=== PATIENT | male | born 1945 | race Caucasian/White ===

== ENCOUNTER 2022-02-12 10:10 | Inpatient (IN) | payer MEDICARE, BC ==
[2022-02-12] MEDS ORDERED: Diclofenac 1% 100 GM GEL TP PRN ×2 (13:45→14:00)
[2022-02-12] MEDS ORDERED: Naproxen 500 MG TAB PO PRN (13:48)
[2022-02-12] MEDS ORDERED: Albuterol Sulfate 2.5 mg/3 ml Neb NEB PRN (13:51)
[2022-02-12] MEDS: Clindamycin 150 MG CAP PO SCH ×2 (16:24→21:38)
[2022-02-12] MEDS ORDERED: Rosuvastatin 10 MG TAB PO SCH (21:00)
[2022-02-12] MEDS ORDERED: Meloxicam 7.5 MG TAB PO PRN (21:07)
[2022-02-12] MEDS: Temazepam 15 MG CAP PO SCH (21:37)
[2022-02-12] MEDS: Cyclobenzaprine 10 MG TAB PO PRN (21:38)
[2022-02-12] MEDS: Aspirin 325 MG TAB PO SCH (21:38)
[2022-02-12] MEDS: ADVAIR INH SCH (21:39)
[2022-02-12] MEDS: LOVAZA PO SCH (21:43)
[2022-02-13 05:45] LABS: #Basophils 0.1 thou/uL (0.0-0.2); #Eosinphils 0.2 thou/uL (0.0-0.7); #Lymphocytes 2.3 thou/uL (1.20-3.40); #Monocytes 0.7 thou/uL (0.11-0.59); #Neutrophils 5.3 thou/uL (1.40-6.50); %Basophils 1.3 % (0.0-1.0); %Lymphocytes 26.9 % (21.0-51.0); %Monocytes 8.1 % (0.0-10.0); %Neutrophils 61.7 % (42.0-75.0); Hemoglobin 11.9 g/dL (14.0-18.0); Hypochromia SLIGHT = 6-15 cells (100X) (0-5/hpf); MDiff Complete? YES; Mean Corpuscular Hemoglobin 29.6 pg (27.0-31.0); Mean Corpuscular Volume 98.4 fL (78.0-98.0); Mean Platelet Volume 7.5 fL (7.4-10.4); Platelet Count 188 thou/uL (130-400); Red Blood Cell (RBC) Count 4.02 mill/uL (4.70-6.10); White Blood Cell (WBC) Count 8.6 thou/uL (4.8-10.8)
[2022-02-13 05:48] LABS: ALT (SGPT) 67 U/L (8-55); AST (SGOT) 52 U/L (5-34); Albumin 3.1 g/dL (3.4-4.8); Alkaline Phosphatase 83 U/L (40-110); Anion Gap 16 mmol/L (10-20); BUN (Urea Nitrogen) 22 mg/dL (8.4-25.7); Bilirubin, Total 0.6 mg/dL (0.2-1.2); Calc. Creatinine Clearance 212 mL/min (70-130); Calcium 8.1 mg/dL (7.8-10.44); Carbon Dioxide 27 mmol/L (23-31); Chloride 104 mmol/L (98-107); Globulin 2.5 g/dL (2.4-3.5); Glucose 110 mg/dL (83-110); Potassium 3.9 mmol/L (3.5-5.1); Protein, Total 5.6 g/dL (5.8-8.1); Sodium 143 mmol/L (136-145)
[2022-02-13] MEDS: Aspirin 325 MG TAB PO SCH ×2 (09:44→20:51)
[2022-02-13] MEDS: Ezetimibe 10 MG TAB PO SCH (09:44)
[2022-02-13] MEDS: Clindamycin 150 MG CAP PO SCH ×3 (09:44→20:51)
[2022-02-13] MEDS: Loratadine 10 MG TAB PO SCH (09:45)
[2022-02-13] MEDS: Furosemide 20 MG TAB PO SCH (09:45)
[2022-02-13] MEDS: ADVAIR INH SCH ×2 (09:45→20:55)
[2022-02-13] MEDS: LOVAZA PO SCH ×2 (09:45→20:55)
[2022-02-13] MEDS: Rosuvastatin 10 MG TAB PO SCH (20:51)
[2022-02-13] MEDS: Temazepam 15 MG CAP PO SCH (20:51)
[2022-02-14] MEDS: Acetaminophen 500 MG TAB PO PRN (08:50)
[2022-02-14] MEDS: Ezetimibe 10 MG TAB PO SCH (08:50)
[2022-02-14] MEDS: Furosemide 20 MG TAB PO SCH (08:50)
[2022-02-14] MEDS: Loratadine 10 MG TAB PO SCH (08:50)
[2022-02-14] MEDS: Aspirin 325 MG TAB PO SCH ×2 (08:50→20:55)
[2022-02-14] MEDS: Clindamycin 150 MG CAP PO SCH (08:50)
[2022-02-14] MEDS: LOVAZA PO SCH ×2 (08:57→21:02)
[2022-02-14] MEDS: ADVAIR INH SCH ×2 (08:57→20:57)
[2022-02-14] MEDS: Rosuvastatin 10 MG TAB PO SCH (20:55)
[2022-02-14] MEDS: Temazepam 15 MG CAP PO SCH (22:11)
[2022-02-15] MEDS: Furosemide 20 MG TAB PO SCH (08:19)
[2022-02-15] MEDS: Loratadine 10 MG TAB PO SCH (08:19)
[2022-02-15] MEDS: Ezetimibe 10 MG TAB PO SCH (08:19)
[2022-02-15] MEDS: Aspirin 325 MG TAB PO SCH ×2 (08:19→20:58)
[2022-02-15] MEDS: ADVAIR INH SCH (08:21)
[2022-02-15] MEDS: LOVAZA PO SCH ×2 (08:22→21:04)
[2022-02-15] MEDS: Bisacodyl 10 MG SUPP PR PRN (14:55)
[2022-02-15] MEDS: Meloxicam 7.5 MG TAB PO PRN (17:50)
[2022-02-15] MEDS: Rosuvastatin 10 MG TAB PO SCH (20:58)
[2022-02-15] MEDS: Temazepam 15 MG CAP PO SCH (20:59)
[2022-02-15] MEDS: [UNRECOGNIZED DRUG - OTHER] INH SCH (21:03)
[2022-02-15] MEDS: WIXELA INHUB INH SCH (21:03)
[2022-02-16] MEDS: Lantiseptic Ointment 130 GM JAR TOP PRN (09:17)
[2022-02-16] MEDS: Furosemide 20 MG TAB PO SCH (09:18)
[2022-02-16] MEDS: Aspirin 325 MG TAB PO SCH ×2 (09:18→21:08)
[2022-02-16] MEDS: Ezetimibe 10 MG TAB PO SCH (09:18)
[2022-02-16] MEDS: Loratadine 10 MG TAB PO SCH (09:18)
[2022-02-16] MEDS: [UNRECOGNIZED DRUG - OTHER] INH SCH ×2 (09:19→21:12)
[2022-02-16] MEDS: WIXELA INHUB INH SCH ×2 (09:19→21:12)
[2022-02-16] MEDS: LOVAZA PO SCH ×2 (09:19→21:10)
[2022-02-16] MEDS: Acetaminophen 500 MG TAB PO PRN (09:20)
[2022-02-16] MEDS: Rosuvastatin 10 MG TAB PO SCH (21:08)
[2022-02-16] MEDS: Temazepam 15 MG CAP PO SCH (21:09)
[2022-02-16] MEDS: Meloxicam 7.5 MG TAB PO PRN (21:09)
[2022-02-17] MEDS: LOVAZA PO SCH ×2 (08:51→21:01)
[2022-02-17] MEDS: [UNRECOGNIZED DRUG - OTHER] INH SCH ×2 (08:52→21:03)
[2022-02-17] MEDS: Aspirin 325 MG TAB PO SCH ×2 (08:52→21:03)
[2022-02-17] MEDS: Loratadine 10 MG TAB PO SCH (08:52)
[2022-02-17] MEDS: Furosemide 20 MG TAB PO SCH (08:52)
[2022-02-17] MEDS: WIXELA INHUB INH SCH ×2 (08:52→21:03)
[2022-02-17] MEDS: Ezetimibe 10 MG TAB PO SCH (08:52)
[2022-02-17] MEDS: Acetaminophen 500 MG TAB PO PRN (08:56)
[2022-02-17 10:39] LABS: ALT (SGPT) 41 U/L (8-55); AST (SGOT) 22 U/L (5-34); Albumin 3.3 g/dL (3.4-4.8); Alkaline Phosphatase 98 U/L (40-110); Anion Gap 16 mmol/L (10-20); BUN (Urea Nitrogen) 14 mg/dL (8.4-25.7); Bilirubin, Total 0.6 mg/dL (0.2-1.2); Calc. Creatinine Clearance 202 mL/min (70-130); Calcium 8.7 mg/dL (7.8-10.44); Carbon Dioxide 25 mmol/L (23-31); Chloride 104 mmol/L (98-107); Globulin 2.7 g/dL (2.4-3.5); Glucose 114 mg/dL (83-110); Potassium 4.3 mmol/L (3.5-5.1); Sodium 141 mmol/L (136-145)
[2022-02-17] MEDS: Bisacodyl 10 MG SUPP PR PRN (14:10)
[2022-02-17 15:26] LABS: SARS-CoV-2 PCR by NAA Not Detected (NotDetected)
[2022-02-17] MEDS: Rosuvastatin 10 MG TAB PO SCH (21:02)
[2022-02-17] MEDS: Temazepam 15 MG CAP PO SCH (22:25)
[2022-02-18 05:44] LABS: #Basophils 0.1 thou/uL (0.0-0.2); #Eosinphils 0.3 thou/uL (0.0-0.7); #Lymphocytes 2.5 thou/uL (1.20-3.40); #Monocytes 0.9 thou/uL (0.11-0.59); %Basophils 0.8 % (0.0-1.0); %Eosinophils 3.8 % (0.0-10.0); %Lymphocytes 28.4 % (21.0-51.0); %Monocytes 10.2 % (0.0-10.0); %Neutrophils 56.8 % (42.0-75.0); Hemoglobin 14.6 g/dL (14.0-18.0); Mean Corpuscular Hemoglobin 33.3 pg (27.0-31.0); Mean Corpuscular Volume 95.1 fL (78.0-98.0); Mean Platelet Volume 6.8 fL (7.4-10.4); Platelet Count 260 thou/uL (130-400); RBC Distribution Width 13.4 % (11.5-14.5); Red Blood Cell (RBC) Count 4.38 mill/uL (4.70-6.10); White Blood Cell (WBC) Count 8.8 thou/uL (4.8-10.8)
[2022-02-18] MEDS: Meloxicam 7.5 MG TAB PO PRN (07:48)
[2022-02-18] MEDS: Acetaminophen 500 MG TAB PO PRN ×2 (07:49→20:28)
[2022-02-18] MEDS: Ezetimibe 10 MG TAB PO SCH (08:18)
[2022-02-18] MEDS: Aspirin 325 MG TAB PO SCH ×2 (08:18→20:27)
[2022-02-18] MEDS: Furosemide 20 MG TAB PO SCH (08:19)
[2022-02-18] MEDS: Loratadine 10 MG TAB PO SCH (08:19)
[2022-02-18] MEDS: LOVAZA PO SCH ×2 (08:19→20:26)
[2022-02-18] MEDS: WIXELA INHUB INH SCH ×2 (08:20→20:31)
[2022-02-18] MEDS: [UNRECOGNIZED DRUG - OTHER] INH SCH ×2 (08:20→20:31)
[2022-02-18] MEDS: Rosuvastatin 10 MG TAB PO SCH (20:30)
[2022-02-18] MEDS: Lantiseptic Ointment 130 GM JAR TOP PRN (20:33)
[2022-02-18] MEDS: Temazepam 15 MG CAP PO SCH (22:22)
[2022-02-19] MEDS: LOVAZA PO SCH ×2 (08:18→21:41)
[2022-02-19] MEDS: Ezetimibe 10 MG TAB PO SCH (08:20)
[2022-02-19] MEDS: Loratadine 10 MG TAB PO SCH (08:20)
[2022-02-19] MEDS: Aspirin 325 MG TAB PO SCH ×2 (08:20→21:37)
[2022-02-19] MEDS: Furosemide 20 MG TAB PO SCH (08:20)
[2022-02-19] MEDS: Lantiseptic Ointment 130 GM JAR TOP PRN (08:21)
[2022-02-19] MEDS: [UNRECOGNIZED DRUG - OTHER] INH SCH ×2 (08:22→21:42)
[2022-02-19] MEDS: WIXELA INHUB INH SCH ×2 (08:22→21:42)
[2022-02-19] MEDS: Rosuvastatin 10 MG TAB PO SCH (21:37)
[2022-02-19] MEDS: Acetaminophen 500 MG TAB PO PRN (21:41)
[2022-02-19] MEDS: Temazepam 15 MG CAP PO SCH (23:24)
[2022-02-19] MEDS ORDERED: Temazepam 15 MG CAP PO SCH (23:30)
[2022-02-20] MEDS: LOVAZA PO SCH ×2 (08:15→20:34)
[2022-02-20] MEDS: [UNRECOGNIZED DRUG - OTHER] INH SCH ×2 (08:17→20:35)
[2022-02-20] MEDS: WIXELA INHUB INH SCH ×2 (08:17→20:35)
[2022-02-20] MEDS: Loratadine 10 MG TAB PO SCH (08:18)
[2022-02-20] MEDS: Aspirin 325 MG TAB PO SCH ×2 (08:18→20:34)
[2022-02-20] MEDS: Furosemide 20 MG TAB PO SCH (08:18)
[2022-02-20] MEDS: Ezetimibe 10 MG TAB PO SCH (08:18)
[2022-02-20] MEDS: Lantiseptic Ointment 130 GM JAR TOP PRN (08:19)
[2022-02-20] MEDS: Meloxicam 7.5 MG TAB PO PRN (20:32)
[2022-02-20] MEDS: Rosuvastatin 10 MG TAB PO SCH (20:33)
[2022-02-20] MEDS: Acetaminophen 500 MG TAB PO PRN (20:33)
[2022-02-20] MEDS: Temazepam 15 MG CAP PO SCH (22:08)
[2022-02-21] MEDS: Ezetimibe 10 MG TAB PO SCH (08:29)
[2022-02-21] MEDS: Furosemide 20 MG TAB PO SCH (08:29)
[2022-02-21] MEDS: Loratadine 10 MG TAB PO SCH (08:29)
[2022-02-21] MEDS: Aspirin 325 MG TAB PO SCH ×2 (08:29→20:01)
[2022-02-21] MEDS: Lantiseptic Ointment 130 GM JAR TOP PRN (08:30)
[2022-02-21] MEDS: [UNRECOGNIZED DRUG - OTHER] INH SCH ×2 (08:31→20:01)
[2022-02-21] MEDS: LOVAZA PO SCH ×2 (08:31→20:00)
[2022-02-21] MEDS: WIXELA INHUB INH SCH ×2 (08:31→20:01)
[2022-02-21] MEDS: Bisacodyl 10 MG SUPP PR PRN (14:08)
[2022-02-21] MEDS: Rosuvastatin 10 MG TAB PO SCH (20:01)
[2022-02-21] MEDS ORDERED: Temazepam 15 MG CAP PO SCH (23:15)
[2022-02-21] MEDS: Meloxicam 7.5 MG TAB PO PRN (23:18)
[2022-02-21] MEDS: Acetaminophen 500 MG TAB PO PRN (23:18)
[2022-02-21] MEDS: Temazepam 15 MG CAP PO SCH (23:54)
[2022-02-22] MEDS: Furosemide 20 MG TAB PO SCH (09:01)
[2022-02-22] MEDS: Loratadine 10 MG TAB PO SCH (09:01)
[2022-02-22] MEDS: Ezetimibe 10 MG TAB PO SCH (09:01)
[2022-02-22] MEDS: Aspirin 325 MG TAB PO SCH ×2 (09:01→20:55)
[2022-02-22] MEDS: LOVAZA PO SCH ×3 (09:02→20:59)
[2022-02-22] MEDS: WIXELA INHUB INH SCH ×2 (09:10→20:58)
[2022-02-22] MEDS: [UNRECOGNIZED DRUG - OTHER] INH SCH ×2 (09:10→20:58)
[2022-02-22] MEDS: Rosuvastatin 10 MG TAB PO SCH (20:56)
[2022-02-22] MEDS: Temazepam 15 MG CAP PO SCH (21:01)
[2022-02-23] MEDS: Furosemide 20 MG TAB PO SCH (09:22)
[2022-02-23] MEDS: Ezetimibe 10 MG TAB PO SCH (09:22)
[2022-02-23] MEDS: Loratadine 10 MG TAB PO SCH (09:22)
[2022-02-23] MEDS: Aspirin 325 MG TAB PO SCH ×2 (09:22→21:30)
[2022-02-23] MEDS: [UNRECOGNIZED DRUG - OTHER] INH SCH ×2 (09:24→21:41)
[2022-02-23] MEDS: WIXELA INHUB INH SCH ×2 (09:24→21:41)
[2022-02-23] MEDS: LOVAZA PO SCH ×2 (09:24→21:31)
[2022-02-23] MEDS: Rosuvastatin 10 MG TAB PO SCH (21:36)
[2022-02-23] MEDS: Meloxicam 7.5 MG TAB PO PRN (21:37)
[2022-02-23] MEDS: Acetaminophen 500 MG TAB PO PRN (21:38)
[2022-02-23] MEDS: Temazepam 15 MG CAP PO SCH (22:26)
[2022-02-24] MEDS: Loratadine 10 MG TAB PO SCH (08:01)
[2022-02-24] MEDS: Aspirin 325 MG TAB PO SCH ×2 (08:01→20:23)
[2022-02-24] MEDS: Ezetimibe 10 MG TAB PO SCH (08:01)
[2022-02-24] MEDS: LOVAZA PO SCH ×2 (08:01→20:23)
[2022-02-24] MEDS: Furosemide 20 MG TAB PO SCH (08:01)
[2022-02-24] MEDS: WIXELA INHUB INH SCH ×2 (08:02→20:23)
[2022-02-24] MEDS: [UNRECOGNIZED DRUG - OTHER] INH SCH ×2 (08:02→20:23)
[2022-02-24] MEDS: Meloxicam 7.5 MG TAB PO PRN ×2 (08:41→20:28)
[2022-02-24 15:35] LABS: SARS-CoV-2 PCR by NAA Not Detected (NotDetected)
[2022-02-24] MEDS: Lantiseptic Ointment 130 GM JAR TOP PRN (20:23)
[2022-02-24] MEDS: Rosuvastatin 10 MG TAB PO SCH (20:24)
[2022-02-24] MEDS: Acetaminophen 500 MG TAB PO PRN (20:29)
[2022-02-24] MEDS: Temazepam 15 MG CAP PO SCH (22:20)
[2022-02-25] MEDS: Loratadine 10 MG TAB PO SCH (08:11)
[2022-02-25] MEDS: Aspirin 325 MG TAB PO SCH ×2 (08:12→20:39)
[2022-02-25] MEDS: Ezetimibe 10 MG TAB PO SCH (08:12)
[2022-02-25] MEDS: Furosemide 20 MG TAB PO SCH (08:12)
[2022-02-25] MEDS: LOVAZA PO SCH ×2 (08:14→20:46)
[2022-02-25] MEDS: WIXELA INHUB INH SCH ×2 (08:15→20:40)
[2022-02-25] MEDS: [UNRECOGNIZED DRUG - OTHER] INH SCH ×2 (08:15→20:40)
[2022-02-25] MEDS: Rosuvastatin 10 MG TAB PO SCH (20:38)
[2022-02-25] MEDS: Meloxicam 7.5 MG TAB PO PRN (20:44)
[2022-02-25] MEDS: Acetaminophen 500 MG TAB PO PRN (20:45)
[2022-02-25] MEDS: Temazepam 15 MG CAP PO SCH (22:59)
[2022-02-26] MEDS: Ezetimibe 10 MG TAB PO SCH (08:45)
[2022-02-26] MEDS: Furosemide 20 MG TAB PO SCH (08:45)
[2022-02-26] MEDS: Aspirin 325 MG TAB PO SCH ×2 (08:45→20:50)
[2022-02-26] MEDS: Loratadine 10 MG TAB PO SCH (08:45)
[2022-02-26] MEDS: [UNRECOGNIZED DRUG - OTHER] INH SCH ×2 (08:46→20:50)
[2022-02-26] MEDS: WIXELA INHUB INH SCH ×2 (08:46→20:50)
[2022-02-26] MEDS: LOVAZA PO SCH ×2 (08:46→20:47)
[2022-02-26] MEDS: Rosuvastatin 10 MG TAB PO SCH (20:48)
[2022-02-26] MEDS: Acetaminophen 500 MG TAB PO PRN (20:53)
[2022-02-26] MEDS: Meloxicam 7.5 MG TAB PO PRN (20:54)
[2022-02-26] MEDS: Temazepam 15 MG CAP PO SCH (22:50)
[2022-02-27] MEDS: Ezetimibe 10 MG TAB PO SCH (09:18)
[2022-02-27] MEDS: Furosemide 20 MG TAB PO SCH (09:18)
[2022-02-27] MEDS: Loratadine 10 MG TAB PO SCH (09:18)
[2022-02-27] MEDS: Aspirin 325 MG TAB PO SCH ×2 (09:18→20:48)
[2022-02-27] MEDS: WIXELA INHUB INH SCH ×2 (09:21→20:50)
[2022-02-27] MEDS: LOVAZA PO SCH ×2 (09:21→20:49)
[2022-02-27] MEDS: [UNRECOGNIZED DRUG - OTHER] INH SCH ×2 (09:21→20:50)
[2022-02-27] MEDS: Meloxicam 7.5 MG TAB PO PRN (19:23)
[2022-02-27] MEDS: Acetaminophen 500 MG TAB PO PRN (19:24)
[2022-02-27] MEDS: Rosuvastatin 10 MG TAB PO SCH (20:49)
[2022-02-27] MEDS: Temazepam 15 MG CAP PO SCH (21:57)
[2022-02-28] MEDS: Aspirin 325 MG TAB PO SCH ×2 (09:32→20:25)
[2022-02-28] MEDS: Loratadine 10 MG TAB PO SCH (09:32)
[2022-02-28] MEDS: Ezetimibe 10 MG TAB PO SCH (09:32)
[2022-02-28] MEDS: Furosemide 20 MG TAB PO SCH (09:32)
[2022-02-28] MEDS: WIXELA INHUB INH SCH ×2 (09:34→20:25)
[2022-02-28] MEDS: LOVAZA PO SCH ×2 (09:34→20:26)
[2022-02-28] MEDS: [UNRECOGNIZED DRUG - OTHER] INH SCH ×2 (09:34→20:25)
[2022-02-28] MEDS: Bisacodyl 10 MG SUPP PR PRN (14:04)
[2022-02-28] MEDS: Meloxicam 7.5 MG TAB PO PRN (19:43)
[2022-02-28] MEDS: Acetaminophen 500 MG TAB PO PRN (19:44)
[2022-02-28] MEDS: Rosuvastatin 10 MG TAB PO SCH (20:25)
[2022-02-28] MEDS: Temazepam 15 MG CAP PO SCH (21:40)
[2022-03-01] MEDS: Ezetimibe 10 MG TAB PO SCH (08:27)
[2022-03-01] MEDS: Aspirin 325 MG TAB PO SCH ×2 (08:27→21:41)
[2022-03-01] MEDS: LOVAZA PO SCH ×2 (08:28→21:45)
[2022-03-01] MEDS: Loratadine 10 MG TAB PO SCH (08:28)
[2022-03-01] MEDS: [UNRECOGNIZED DRUG - OTHER] INH SCH ×2 (08:30→21:46)
[2022-03-01] MEDS: WIXELA INHUB INH SCH ×2 (08:30→21:46)
[2022-03-01] MEDS ORDERED: Furosemide 20 MG TAB PO SCH ×2 (09:00→21:00)
[2022-03-01] MEDS: Furosemide 20 MG TAB PO SCH (13:48)
[2022-03-01] MEDS: Cephalexin 500 MG CAP PO SCH ×3 (13:48→21:41)
[2022-03-01] MEDS ORDERED: VENTOLIN 90 MCG INH PRN (16:28)
[2022-03-01] MEDS: Meloxicam 7.5 MG TAB PO PRN (21:39)
[2022-03-01] MEDS: Rosuvastatin 10 MG TAB PO SCH (21:41)
[2022-03-01] MEDS: Acetaminophen 500 MG TAB PO PRN (21:42)
[2022-03-01] MEDS: Temazepam 15 MG CAP PO SCH (21:42)
[2022-03-02 05:21] LABS: #Basophils 0.1 thou/uL (0.0-0.2); #Eosinphils 0.5 thou/uL (0.0-0.7); #Lymphocytes 2.7 thou/uL (1.20-3.40); #Monocytes 0.9 thou/uL (0.11-0.59); #Neutrophils 6.7 thou/uL (1.40-6.50); %Eosinophils 4.8 % (0.0-10.0); %Lymphocytes 24.3 % (21.0-51.0); %Monocytes 8.4 % (0.0-10.0); %Neutrophils 61.5 % (42.0-75.0); Hemoglobin 14.1 g/dL (14.0-18.0); Mean Corpuscular HGB CONC 30.7 g/dL (32.0-36.0); Mean Corpuscular Hemoglobin 29.2 pg (27.0-31.0); Mean Corpuscular Volume 95.2 fL (78.0-98.0); Mean Platelet Volume 7.2 fL (7.4-10.4); Platelet Count 255 thou/uL (130-400); RBC Distribution Width 13.7 % (11.5-14.5); Red Blood Cell (RBC) Count 4.85 mill/uL (4.70-6.10)
[2022-03-02 05:35] LABS: Anion Gap 15 mmol/L (10-20); BUN (Urea Nitrogen) 24 mg/dL (8.4-25.7); Calc. Creatinine Clearance 156 mL/min (70-130); Carbon Dioxide 29 mmol/L (23-31); Chloride 101 mmol/L (98-107); Glucose 107 mg/dL (83-110); Sodium 141 mmol/L (136-145)
[2022-03-02] MEDS: Loratadine 10 MG TAB PO SCH (09:54)
[2022-03-02] MEDS: Enoxaparin Sodium 40 MG/0.4 ML SYRINGE SC SCH (09:54)
[2022-03-02] MEDS: Aspirin 325 MG TAB PO SCH ×2 (09:54→20:18)
[2022-03-02] MEDS: Cephalexin 500 MG CAP PO SCH ×4 (09:54→20:19)
[2022-03-02] MEDS: WIXELA INHUB INH SCH ×2 (09:55→20:21)
[2022-03-02] MEDS: [UNRECOGNIZED DRUG - OTHER] INH SCH ×2 (09:55→20:21)
[2022-03-02] MEDS: LOVAZA PO SCH ×2 (09:55→20:20)
[2022-03-02] MEDS: Ezetimibe 10 MG TAB PO SCH (09:55)
[2022-03-02] MEDS: Furosemide 20 MG TAB PO SCH ×2 (09:55→18:06)
[2022-03-02] MEDS: Acetaminophen 500 MG TAB PO PRN (20:17)
[2022-03-02] MEDS: Rosuvastatin 10 MG TAB PO SCH (20:19)
[2022-03-02] MEDS: Meloxicam 7.5 MG TAB PO PRN (20:19)
[2022-03-02] MEDS: Temazepam 15 MG CAP PO SCH (21:52)
[2022-03-03] MEDS: Aspirin 325 MG TAB PO SCH ×2 (08:09→20:47)
[2022-03-03] MEDS: Furosemide 20 MG TAB PO SCH ×2 (08:09→15:09)
[2022-03-03] MEDS: Enoxaparin Sodium 40 MG/0.4 ML SYRINGE SC SCH (08:09)
[2022-03-03] MEDS: Cephalexin 500 MG CAP PO SCH ×4 (08:09→20:47)
[2022-03-03] MEDS: Loratadine 10 MG TAB PO SCH (08:09)
[2022-03-03] MEDS: Ezetimibe 10 MG TAB PO SCH (08:10)
[2022-03-03] MEDS: [UNRECOGNIZED DRUG - OTHER] INH SCH ×2 (08:10→20:45)
[2022-03-03] MEDS: WIXELA INHUB INH SCH ×2 (08:10→20:45)
[2022-03-03] MEDS: LOVAZA PO SCH ×2 (08:10→20:52)
[2022-03-03 13:40] LABS: Bilirubin Negative (Negative); Blood, Urine Trace (Negative); Clarity Clear (Clear); Glucose, Urine (Dipstick) Negative (Negative); Ketone, Urine Negative (Negative); Leukocyte Negative (Negative); Nitrite Negative (Negative); Protein, Urine (Dipstick) Negative (Neg-Trace); Urobilinogen 0.2 mg/dL (Less than 2); pH, Urine 6.5 (5.0-9.0)
[2022-03-03 14:05] LABS: Bacteria/HPF Rare-Few HPF (None Seen); RBC/HPF 0-3 HPF (0-3); Squamous Epithelial 0-3 HPF (0-3); Urine Culture Reflex No No; WBC/HPF None Seen HPF (0-3)
[2022-03-03 14:20] LABS: SARS-CoV-2 PCR by NAA Not Detected (NotDetected)
[2022-03-03] MEDS: Rosuvastatin 10 MG TAB PO SCH (20:47)
[2022-03-03] MEDS: Meloxicam 7.5 MG TAB PO PRN (20:48)
[2022-03-03] MEDS: Acetaminophen 500 MG TAB PO PRN (20:49)
[2022-03-03] MEDS: Temazepam 15 MG CAP PO SCH (21:56)
[2022-03-04] MEDS: Aspirin 325 MG TAB PO SCH ×2 (08:34→21:13)
[2022-03-04] MEDS: Cephalexin 500 MG CAP PO SCH ×4 (08:34→21:13)
[2022-03-04] MEDS: Enoxaparin Sodium 40 MG/0.4 ML SYRINGE SC SCH (08:34)
[2022-03-04] MEDS: Loratadine 10 MG TAB PO SCH (08:34)
[2022-03-04] MEDS: Ezetimibe 10 MG TAB PO SCH (08:34)
[2022-03-04] MEDS: LOVAZA PO SCH ×2 (08:34→21:14)
[2022-03-04] MEDS: Furosemide 20 MG TAB PO SCH ×2 (08:34→13:50)
[2022-03-04] MEDS: [UNRECOGNIZED DRUG - OTHER] INH SCH ×2 (08:35→21:15)
[2022-03-04] MEDS: WIXELA INHUB INH SCH ×2 (08:35→21:15)
[2022-03-04] MEDS ORDERED: Cephalexin 500 MG CAP ONE (17:45)
[2022-03-04] MEDS: Acetaminophen 500 MG TAB PO PRN (21:12)
[2022-03-04] MEDS: Meloxicam 7.5 MG TAB PO PRN (21:13)
[2022-03-04] MEDS: Rosuvastatin 10 MG TAB PO SCH (21:13)
[2022-03-04] MEDS: Temazepam 15 MG CAP PO SCH (22:01)
[2022-03-05] MEDS: Cyclobenzaprine 10 MG TAB PO PRN (02:08)
[2022-03-05] MEDS: Acetaminophen/Codeine 30-300mg Tablet PO PRN (10:28)
[2022-03-05] MEDS: Cephalexin 500 MG CAP PO SCH ×4 (10:28→20:35)
[2022-03-05] MEDS: Aspirin 325 MG TAB PO SCH ×2 (10:30→20:35)
[2022-03-05] MEDS: Furosemide 20 MG TAB PO SCH ×2 (10:30→14:03)
[2022-03-05] MEDS: Enoxaparin Sodium 40 MG/0.4 ML SYRINGE SC SCH (10:31)
[2022-03-05] MEDS: Ezetimibe 10 MG TAB PO SCH (10:31)
[2022-03-05] MEDS: Loratadine 10 MG TAB PO SCH (10:31)
[2022-03-05] MEDS: LOVAZA PO SCH ×2 (10:35→20:37)
[2022-03-05] MEDS: WIXELA INHUB INH SCH ×2 (10:35→20:37)
[2022-03-05] MEDS: [UNRECOGNIZED DRUG - OTHER] INH SCH ×2 (10:35→20:37)
[2022-03-05] MEDS ORDERED: Silver Sulfadiazine 50 GM JAR TP SCH (16:45)
[2022-03-05] MEDS: Rosuvastatin 10 MG TAB PO SCH (20:35)
[2022-03-05] MEDS: Meloxicam 7.5 MG TAB PO PRN (20:35)
[2022-03-05] MEDS: Acetaminophen 500 MG TAB PO PRN (20:36)
[2022-03-05] MEDS: Temazepam 15 MG CAP PO SCH (22:20)
[2022-03-06] MEDS: Cyclobenzaprine 10 MG TAB PO PRN (02:11)
[2022-03-06] MEDS: Aspirin 325 MG TAB PO SCH ×2 (08:38→20:50)
[2022-03-06] MEDS: Ezetimibe 10 MG TAB PO SCH (08:38)
[2022-03-06] MEDS: Cephalexin 500 MG CAP PO SCH ×4 (08:38→20:49)
[2022-03-06] MEDS: Enoxaparin Sodium 40 MG/0.4 ML SYRINGE SC SCH (08:38)
[2022-03-06] MEDS: Furosemide 20 MG TAB PO SCH ×2 (08:38→13:01)
[2022-03-06] MEDS: Loratadine 10 MG TAB PO SCH (08:38)
[2022-03-06] MEDS: Silver Sulfadiazine 50 GM JAR TP SCH (08:39)
[2022-03-06] MEDS: LOVAZA PO SCH ×2 (08:41→20:54)
[2022-03-06] MEDS: WIXELA INHUB INH SCH ×2 (08:41→20:54)
[2022-03-06] MEDS: [UNRECOGNIZED DRUG - OTHER] INH SCH ×2 (08:41→20:54)
[2022-03-06] MEDS: Rosuvastatin 10 MG TAB PO SCH (20:49)
[2022-03-06] MEDS ORDERED: Guaifenesin DM 100-10/5 ML UDCUP PO PRN (20:49)
[2022-03-06] MEDS: Acetaminophen 500 MG TAB PO PRN (20:50)
[2022-03-06] MEDS: Meloxicam 7.5 MG TAB PO PRN (20:50)
[2022-03-06] MEDS: Temazepam 15 MG CAP PO SCH (22:53)
[2022-03-07] MEDS: Cyclobenzaprine 10 MG TAB PO PRN (02:54)
[2022-03-07] MEDS: Cephalexin 500 MG CAP PO SCH ×4 (08:16→22:06)
[2022-03-07] MEDS: Aspirin 325 MG TAB PO SCH ×2 (08:16→22:06)
[2022-03-07] MEDS: Loratadine 10 MG TAB PO SCH (08:16)
[2022-03-07] MEDS: Enoxaparin Sodium 40 MG/0.4 ML SYRINGE SC SCH (08:16)
[2022-03-07] MEDS: Ezetimibe 10 MG TAB PO SCH (08:16)
[2022-03-07] MEDS: Furosemide 20 MG TAB PO SCH ×2 (08:16→13:29)
[2022-03-07] MEDS: LOVAZA PO SCH ×2 (08:17→22:06)
[2022-03-07] MEDS: Silver Sulfadiazine 50 GM JAR TP SCH (08:18)
[2022-03-07] MEDS: WIXELA INHUB INH SCH ×2 (08:18→22:06)
[2022-03-07] MEDS: [UNRECOGNIZED DRUG - OTHER] INH SCH ×2 (08:18→22:06)
[2022-03-07] MEDS: Bisacodyl 10 MG SUPP PR PRN (14:11)
[2022-03-07] MEDS: Rosuvastatin 10 MG TAB PO SCH (22:07)
[2022-03-07] MEDS: Temazepam 15 MG CAP PO SCH (22:07)
[2022-03-07] MEDS: Meloxicam 7.5 MG TAB PO PRN (22:08)
[2022-03-07] MEDS: Acetaminophen 500 MG TAB PO PRN (22:08)
[2022-03-08] MEDS: WIXELA INHUB INH SCH ×2 (10:40→20:36)
[2022-03-08] MEDS: [UNRECOGNIZED DRUG - OTHER] INH SCH ×2 (10:40→20:36)
[2022-03-08] MEDS: Furosemide 20 MG TAB PO SCH ×2 (10:41→13:59)
[2022-03-08] MEDS: LOVAZA PO SCH (10:41)
[2022-03-08] MEDS: Loratadine 10 MG TAB PO SCH (10:41)
[2022-03-08] MEDS: Aspirin 325 MG TAB PO SCH ×2 (10:41→20:33)
[2022-03-08] MEDS: Ezetimibe 10 MG TAB PO SCH (10:41)
[2022-03-08] MEDS: Emollient 15 oz bottle 450 ML, Triamcinolone Acetonide 200 MG TOP SCH (10:42)
[2022-03-08] MEDS: Enoxaparin Sodium 40 MG/0.4 ML SYRINGE SC SCH (10:42)
[2022-03-08] MEDS: Silver Sulfadiazine 50 GM JAR TP SCH (10:42)
[2022-03-08] MEDS: Cephalexin 500 MG CAP PO SCH ×4 (10:42→20:35)
[2022-03-08] MEDS: Bisacodyl 10 MG SUPP PR PRN (10:47)
[2022-03-08] MEDS: LOVAZA 1 GM PO SCH (20:32)
[2022-03-08] MEDS: Rosuvastatin 10 MG TAB PO SCH (20:33)
[2022-03-08] MEDS: Acetaminophen 500 MG TAB PO PRN (20:35)
[2022-03-08] MEDS: Temazepam 15 MG CAP PO SCH (22:29)
[2022-03-09] MEDS: Cyclobenzaprine 10 MG TAB PO PRN (03:46)
[2022-03-09 05:25] LABS: #Basophils 0.1 thou/uL (0.0-0.2); #Eosinphils 0.7 thou/uL (0.0-0.7); #Lymphocytes 2.7 thou/uL (1.20-3.40); #Neutrophils 5.6 thou/uL (1.40-6.50); %Eosinophils 7.1 % (0.0-10.0); %Lymphocytes 26.5 % (21.0-51.0); %Monocytes 9.7 % (0.0-10.0); %Neutrophils 55.8 % (42.0-75.0); Hemoglobin 13.7 g/dL (14.0-18.0); Mean Corpuscular HGB CONC 31.9 g/dL (32.0-36.0); Mean Corpuscular Hemoglobin 29.7 pg (27.0-31.0); Mean Corpuscular Volume 92.9 fL (78.0-98.0); Mean Platelet Volume 7.3 fL (7.4-10.4); Platelet Count 212 thou/uL (130-400); RBC Distribution Width 12.8 % (11.5-14.5); Red Blood Cell (RBC) Count 4.63 mill/uL (4.70-6.10)
[2022-03-09 05:38] LABS: Anion Gap 16 mmol/L (10-20); BUN (Urea Nitrogen) 22 mg/dL (8.4-25.7); Calc. Creatinine Clearance 170 mL/min (70-130); Calcium 8.7 mg/dL (7.8-10.44); Carbon Dioxide 28 mmol/L (23-31); Chloride 101 mmol/L (98-107); Glucose 108 mg/dL (83-110); Potassium 3.6 mmol/L (3.5-5.1); Sodium 141 mmol/L (136-145)
[2022-03-09] MEDS: Ezetimibe 10 MG TAB PO SCH (08:54)
[2022-03-09] MEDS: Loratadine 10 MG TAB PO SCH (08:54)
[2022-03-09] MEDS: Enoxaparin Sodium 40 MG/0.4 ML SYRINGE SC SCH (08:54)
[2022-03-09] MEDS: Aspirin 325 MG TAB PO SCH ×2 (08:54→21:42)
[2022-03-09] MEDS: Furosemide 20 MG TAB PO SCH ×2 (08:54→14:09)
[2022-03-09] MEDS: Cephalexin 500 MG CAP PO SCH ×4 (08:54→21:42)
[2022-03-09] MEDS: Silver Sulfadiazine 50 GM JAR TP SCH (08:57)
[2022-03-09] MEDS: LOVAZA 1 GM PO SCH ×2 (08:57→21:43)
[2022-03-09] MEDS: [UNRECOGNIZED DRUG - OTHER] INH SCH ×2 (08:57→21:43)
[2022-03-09] MEDS: WIXELA INHUB INH SCH ×2 (08:57→21:43)
[2022-03-09] MEDS: Emollient 15 oz bottle 450 ML, Triamcinolone Acetonide 200 MG TOP SCH (08:58)
[2022-03-09] MEDS: Acetaminophen/Codeine 30-300mg Tablet PO PRN (14:14)
[2022-03-09] MEDS: Bisacodyl 10 MG SUPP PR PRN (17:10)
[2022-03-09] MEDS: Meloxicam 7.5 MG TAB PO PRN (21:43)
[2022-03-09] MEDS: Rosuvastatin 10 MG TAB PO SCH (21:44)
[2022-03-09] MEDS: Acetaminophen 500 MG TAB PO PRN (21:44)
[2022-03-09] MEDS: Temazepam 15 MG CAP PO SCH (22:26)
[2022-03-10] MEDS: WIXELA INHUB INH SCH ×2 (08:45→21:36)
[2022-03-10] MEDS: [UNRECOGNIZED DRUG - OTHER] INH SCH ×2 (08:45→21:36)
[2022-03-10] MEDS: Ezetimibe 10 MG TAB PO SCH (08:46)
[2022-03-10] MEDS: Aspirin 325 MG TAB PO SCH ×2 (08:46→21:34)
[2022-03-10] MEDS: LOVAZA 1 GM PO SCH ×2 (08:46→21:36)
[2022-03-10] MEDS: Enoxaparin Sodium 40 MG/0.4 ML SYRINGE SC SCH (08:47)
[2022-03-10] MEDS: Cephalexin 500 MG CAP PO SCH ×2 (08:47→12:58)
[2022-03-10] MEDS: Furosemide 20 MG TAB PO SCH ×2 (08:47→12:59)
[2022-03-10] MEDS: Loratadine 10 MG TAB PO SCH (08:47)
[2022-03-10] MEDS: Silver Sulfadiazine 50 GM JAR TP SCH (08:50)
[2022-03-10] MEDS: Emollient 15 oz bottle 450 ML, Triamcinolone Acetonide 200 MG TOP SCH (08:51)
[2022-03-10 15:59] LABS: SARS-CoV-2 PCR by NAA Not Detected (NotDetected)
[2022-03-10] MEDS: Meloxicam 7.5 MG TAB PO PRN (21:34)
[2022-03-10] MEDS: Rosuvastatin 10 MG TAB PO SCH (21:34)
[2022-03-10] MEDS: Acetaminophen 500 MG TAB PO PRN (21:35)
[2022-03-10] MEDS: Temazepam 15 MG CAP PO SCH (22:28)
[2022-03-11] MEDS: Cyclobenzaprine 10 MG TAB PO PRN (01:38)
[2022-03-11] MEDS: Enoxaparin Sodium 40 MG/0.4 ML SYRINGE SC SCH (09:11)
[2022-03-11] MEDS: Loratadine 10 MG TAB PO SCH (09:11)
[2022-03-11] MEDS: [UNRECOGNIZED DRUG - OTHER] INH SCH ×2 (09:12→21:05)
[2022-03-11] MEDS: Furosemide 20 MG TAB PO SCH ×2 (09:12→13:19)
[2022-03-11] MEDS: Aspirin 325 MG TAB PO SCH ×2 (09:12→21:05)
[2022-03-11] MEDS: Ezetimibe 10 MG TAB PO SCH (09:12)
[2022-03-11] MEDS: WIXELA INHUB INH SCH ×2 (09:12→21:05)
[2022-03-11] MEDS: LOVAZA 1 GM PO SCH ×2 (09:12→21:02)
[2022-03-11] MEDS: Silver Sulfadiazine 50 GM JAR TP SCH (09:12)
[2022-03-11] MEDS: Emollient 15 oz bottle 450 ML, Triamcinolone Acetonide 200 MG TOP SCH (09:13)
[2022-03-11] MEDS: Rosuvastatin 10 MG TAB PO SCH (21:04)
[2022-03-11] MEDS: Temazepam 15 MG CAP PO SCH (22:01)
[2022-03-11] MEDS: Acetaminophen 500 MG TAB PO PRN (22:01)
[2022-03-12] MEDS: Enoxaparin Sodium 40 MG/0.4 ML SYRINGE SC SCH (08:29)
[2022-03-12] MEDS: Furosemide 20 MG TAB PO SCH ×2 (08:30→13:55)
[2022-03-12] MEDS: Ezetimibe 10 MG TAB PO SCH (08:30)
[2022-03-12] MEDS: Aspirin 325 MG TAB PO SCH ×2 (08:30→20:33)
[2022-03-12] MEDS: Loratadine 10 MG TAB PO SCH (08:30)
[2022-03-12] MEDS: WIXELA INHUB INH SCH ×2 (08:30→20:30)
[2022-03-12] MEDS: [UNRECOGNIZED DRUG - OTHER] INH SCH ×2 (08:30→20:30)
[2022-03-12] MEDS: LOVAZA 1 GM PO SCH ×2 (08:30→20:32)
[2022-03-12] MEDS: Silver Sulfadiazine 50 GM JAR TP SCH (08:31)
[2022-03-12] MEDS: Emollient 15 oz bottle 450 ML, Triamcinolone Acetonide 200 MG TOP SCH (08:31)
[2022-03-12] MEDS: Bisacodyl 10 MG SUPP PR PRN (15:31)
[2022-03-12] MEDS: Acetaminophen 500 MG TAB PO PRN (19:49)
[2022-03-12] MEDS: Meloxicam 7.5 MG TAB PO PRN (19:50)
[2022-03-12] MEDS: Rosuvastatin 10 MG TAB PO SCH (20:33)
[2022-03-12] MEDS: Temazepam 15 MG CAP PO SCH (23:24)
[2022-03-13] MEDS: Enoxaparin Sodium 40 MG/0.4 ML SYRINGE SC SCH (09:30)
[2022-03-13] MEDS: WIXELA INHUB INH SCH ×2 (09:30→22:06)
[2022-03-13] MEDS: Ezetimibe 10 MG TAB PO SCH (09:30)
[2022-03-13] MEDS: Aspirin 325 MG TAB PO SCH ×2 (09:30→21:59)
[2022-03-13] MEDS: LOVAZA 1 GM PO SCH ×2 (09:30→22:05)
[2022-03-13] MEDS: Furosemide 20 MG TAB PO SCH ×2 (09:30→13:51)
[2022-03-13] MEDS: Silver Sulfadiazine 50 GM JAR TP SCH (09:30)
[2022-03-13] MEDS: Loratadine 10 MG TAB PO SCH (09:30)
[2022-03-13] MEDS: [UNRECOGNIZED DRUG - OTHER] INH SCH ×2 (09:30→22:06)
[2022-03-13] MEDS: Emollient 15 oz bottle 450 ML, Triamcinolone Acetonide 200 MG TOP SCH (09:31)
[2022-03-13] MEDS: Acetaminophen 500 MG TAB PO PRN (21:59)
[2022-03-13] MEDS: Rosuvastatin 10 MG TAB PO SCH (22:00)
[2022-03-13] MEDS: Meloxicam 7.5 MG TAB PO PRN (22:00)
[2022-03-13] MEDS: Temazepam 15 MG CAP PO SCH (22:01)
[2022-03-14] MEDS: Cyclobenzaprine 10 MG TAB PO PRN (01:28)
[2022-03-14] MEDS: Enoxaparin Sodium 40 MG/0.4 ML SYRINGE SC SCH (09:10)
[2022-03-14] MEDS: Ezetimibe 10 MG TAB PO SCH (09:10)
[2022-03-14] MEDS: Loratadine 10 MG TAB PO SCH (09:10)
[2022-03-14] MEDS: Furosemide 20 MG TAB PO SCH ×2 (09:10→14:51)
[2022-03-14] MEDS: Aspirin 325 MG TAB PO SCH ×2 (09:10→20:42)
[2022-03-14] MEDS: [UNRECOGNIZED DRUG - OTHER] INH SCH ×2 (09:11→20:45)
[2022-03-14] MEDS: WIXELA INHUB INH SCH ×2 (09:11→20:45)
[2022-03-14] MEDS: LOVAZA 1 GM PO SCH ×2 (09:11→20:44)
[2022-03-14] MEDS: Silver Sulfadiazine 50 GM JAR TP SCH (09:12)
[2022-03-14] MEDS: Emollient 15 oz bottle 450 ML, Triamcinolone Acetonide 200 MG TOP SCH (09:12)
[2022-03-14] MEDS: Rosuvastatin 10 MG TAB PO SCH (20:42)
[2022-03-14] MEDS: Temazepam 15 MG CAP PO SCH (22:58)
[2022-03-14] MEDS: Meloxicam 7.5 MG TAB PO PRN (22:59)
[2022-03-14] MEDS: Acetaminophen 500 MG TAB PO PRN (22:59)
[2022-03-15] MEDS: Silver Sulfadiazine 50 GM JAR TP SCH (09:37)
[2022-03-15] MEDS: Ezetimibe 10 MG TAB PO SCH (09:41)
[2022-03-15] MEDS: Enoxaparin Sodium 40 MG/0.4 ML SYRINGE SC SCH (09:41)
[2022-03-15] MEDS: Aspirin 325 MG TAB PO SCH ×2 (09:41→20:47)
[2022-03-15] MEDS: Loratadine 10 MG TAB PO SCH (09:42)
[2022-03-15] MEDS: Furosemide 20 MG TAB PO SCH ×2 (09:42→13:49)
[2022-03-15] MEDS: [UNRECOGNIZED DRUG - OTHER] INH SCH ×2 (09:44→20:48)
[2022-03-15] MEDS: WIXELA INHUB INH SCH ×2 (09:44→20:48)
[2022-03-15] MEDS: LOVAZA 1 GM PO SCH ×2 (09:44→20:49)
[2022-03-15] MEDS: Emollient 15 oz bottle 450 ML, Triamcinolone Acetonide 200 MG TOP SCH (09:46)
[2022-03-15] MEDS: Rosuvastatin 10 MG TAB PO SCH (20:47)
[2022-03-15] MEDS: Temazepam 15 MG CAP PO SCH (22:27)
[2022-03-16] MEDS: Aspirin 325 MG TAB PO SCH ×2 (08:37→20:59)
[2022-03-16] MEDS: Enoxaparin Sodium 40 MG/0.4 ML SYRINGE SC SCH (08:37)
[2022-03-16] MEDS: Ezetimibe 10 MG TAB PO SCH (08:37)
[2022-03-16] MEDS: Loratadine 10 MG TAB PO SCH (08:38)
[2022-03-16] MEDS: Furosemide 20 MG TAB PO SCH ×2 (08:38→15:00)
[2022-03-16] MEDS: LOVAZA 1 GM PO SCH ×2 (08:42→21:04)
[2022-03-16] MEDS: [UNRECOGNIZED DRUG - OTHER] INH SCH ×2 (08:42→21:01)
[2022-03-16] MEDS: WIXELA INHUB INH SCH ×2 (08:42→21:01)
[2022-03-16] MEDS: Emollient 15 oz bottle 450 ML, Triamcinolone Acetonide 200 MG TOP SCH (08:43)
[2022-03-16] MEDS: Bisacodyl 10 MG SUPP PR PRN (15:01)
[2022-03-16] MEDS: Rosuvastatin 10 MG TAB PO SCH (20:59)
[2022-03-17] MEDS: Temazepam 15 MG CAP PO SCH ×2 (00:36→22:45)
[2022-03-17 05:31] LABS: Hemoglobin 15.1 g/dL (14.0-18.0); Platelet Count 265 thou/uL (130-400)
[2022-03-17 05:44] LABS: Calc. Creatinine Clearance 110 mL/min (70-130)
[2022-03-17] MEDS: Enoxaparin Sodium 40 MG/0.4 ML SYRINGE SC SCH (08:24)
[2022-03-17] MEDS: Aspirin 325 MG TAB PO SCH ×2 (08:24→20:37)
[2022-03-17] MEDS: Ezetimibe 10 MG TAB PO SCH (08:25)
[2022-03-17] MEDS: Furosemide 20 MG TAB PO SCH ×2 (08:25→14:36)
[2022-03-17] MEDS: Loratadine 10 MG TAB PO SCH (08:25)
[2022-03-17] MEDS: WIXELA INHUB INH SCH ×2 (08:26→20:40)
[2022-03-17] MEDS: [UNRECOGNIZED DRUG - OTHER] INH SCH ×2 (08:26→20:40)
[2022-03-17] MEDS: LOVAZA 1 GM PO SCH ×2 (08:26→20:39)
[2022-03-17] MEDS: Emollient 15 oz bottle 450 ML, Triamcinolone Acetonide 200 MG TOP SCH (08:34)
[2022-03-17] MEDS: Rosuvastatin 10 MG TAB PO SCH (20:37)
[2022-03-17] MEDS: Acetaminophen 500 MG TAB PO PRN (20:43)
[2022-03-18 06:37] VITALS: BMI 42.5
[2022-03-18] MEDS: LOVAZA 1 GM PO SCH ×2 (09:29→20:41)
[2022-03-18] MEDS: [UNRECOGNIZED DRUG - OTHER] INH SCH ×2 (09:30→20:42)
[2022-03-18] MEDS: WIXELA INHUB INH SCH ×2 (09:30→20:42)
[2022-03-18] MEDS: Aspirin 325 MG TAB PO SCH ×2 (09:30→20:44)
[2022-03-18] MEDS: Loratadine 10 MG TAB PO SCH (09:30)
[2022-03-18] MEDS: Furosemide 20 MG TAB PO SCH ×2 (09:30→15:16)
[2022-03-18] MEDS: Ezetimibe 10 MG TAB PO SCH (09:30)
[2022-03-18] MEDS: Enoxaparin Sodium 40 MG/0.4 ML SYRINGE SC SCH (09:31)
[2022-03-18 15:31] LABS: SARS-CoV-2 PCR by NAA Not Detected (NotDetected)
[2022-03-18] MEDS: Emollient 15 oz bottle 450 ML, Triamcinolone Acetonide 200 MG TOP SCH (15:36)
[2022-03-18] MEDS: Meloxicam 7.5 MG TAB PO PRN (19:23)
[2022-03-18] MEDS: Acetaminophen 500 MG TAB PO PRN (19:24)
[2022-03-18] MEDS: Rosuvastatin 10 MG TAB PO SCH (20:42)
[2022-03-18] MEDS: Temazepam 15 MG CAP PO SCH (22:33)
[2022-03-19 07:58] VITALS: BP 136/83; TEMP 97.4
[2022-03-19] MEDS: Loratadine 10 MG TAB PO SCH (08:46)
[2022-03-19] MEDS: Ezetimibe 10 MG TAB PO SCH (08:46)
[2022-03-19] MEDS: Enoxaparin Sodium 40 MG/0.4 ML SYRINGE SC SCH (08:46)
[2022-03-19] MEDS: Furosemide 20 MG TAB PO SCH (08:46)
[2022-03-19] MEDS: Aspirin 325 MG TAB PO SCH (08:46)
[2022-03-19] MEDS: LOVAZA 1 GM PO SCH (08:47)
[2022-03-19] MEDS: [UNRECOGNIZED DRUG - OTHER] INH SCH (08:49)
[2022-03-19] MEDS: WIXELA INHUB INH SCH (08:49)
[2022-03-19] MEDS: Emollient 15 oz bottle 450 ML, Triamcinolone Acetonide 200 MG TOP SCH (08:50)
== END 2022-03-19 14:29 | disposition home health service (06) | DRG 948 ==
LOC: UNDOADMIN 10:10 → MADMS 10:10
PROVIDERS: ADMIT Family Medicine; ATTEND Family Medicine
PROC: 5A09357 Assistance with Respiratory Ventilation, Less than 24 Consecutive Hours, Continuous Positive Airway Pressure (ICD-10-PCS; principal; 2022-02-18)
PROC: 5A09357 Assistance with Respiratory Ventilation, Less than 24 Consecutive Hours, Continuous Positive Airway Pressure (ICD-10-PCS; 2022-03-02)
PROC: 5A09357 Assistance with Respiratory Ventilation, Less than 24 Consecutive Hours, Continuous Positive Airway Pressure (ICD-10-PCS; 2022-03-03)
PROC: 5A09357 Assistance with Respiratory Ventilation, Less than 24 Consecutive Hours, Continuous Positive Airway Pressure (ICD-10-PCS; 2022-03-19)
DX: R53.81 Other malaise (principal); Z68.41 Body mass index [BMI] 40.0-44.9, adult; L03.115 Cellulitis of right lower limb; L03.116 Cellulitis of left lower limb; L97.929 Non-pressure chronic ulcer of unspecified part of left lower leg with unspecified severity; L97.919 Non-pressure chronic ulcer of unspecified part of right lower leg with unspecified severity; R53.1 Weakness; I89.0 Lymphedema, not elsewhere classified; J44.9 Chronic obstructive pulmonary disease, unspecified; E78.5 Hyperlipidemia, unspecified; E66.01 Morbid (severe) obesity due to excess calories; T50.995A Adverse effect of other drugs, medicaments and biological substances, initial encounter; S80.822A Blister (nonthermal), left lower leg, initial encounter; S80.821A Blister (nonthermal), right lower leg, initial encounter; I10 Essential (primary) hypertension; K76.0 Fatty (change of) liver, not elsewhere classified; R94.5 Abnormal results of liver function studies; K59.00 Constipation, unspecified; G47.33 Obstructive sleep apnea (adult) (pediatric); Z20.822 Contact with and (suspected) exposure to COVID-19; Z79.82 Long term (current) use of aspirin; Z96.612 Presence of left artificial shoulder joint; Z79.899 Other long term (current) drug therapy; Z98.890 Other specified postprocedural states; Z96.653 Presence of artificial knee joint, bilateral
CPT/HCPCS: 36415; 80048; 80053; 81001; 82565; 85014; 85018; 85025; 85049; J1650; J3301; J7620; U0003; U0005

== ENCOUNTER 2022-06-28 11:35 | Emergency (ER) | payer MEDICARE, BC ==
[2022-06-28 12:36] LABS: #Basophils 0.1 thou/uL (0.0-0.2); #Eosinphils 0.3 thou/uL (0.0-0.7); #Lymphocytes 3.1 thou/uL (1.20-3.40); #Monocytes 0.9 thou/uL (0.11-0.59); #Neutrophils 6.9 thou/uL (1.40-6.50); %Basophils 0.6 % (0.0-1.0); %Eosinophils 2.6 % (0.0-10.0); %Monocytes 7.7 % (0.0-10.0); %Neutrophils 61.1 % (42.0-75.0); Hemoglobin 14.8 g/dL (14.0-18.0); Mean Corpuscular HGB CONC 31.5 g/dL (32.0-36.0); Mean Corpuscular Hemoglobin 29.1 pg (27.0-31.0); Mean Corpuscular Volume 92.3 fL (78.0-98.0); Mean Platelet Volume 7.8 fL (7.4-10.4); Platelet Count 212 thou/uL (130-400); RBC Distribution Width 13.2 % (11.5-14.5); White Blood Cell (WBC) Count 11.2 thou/uL (4.8-10.8)
[2022-06-28 12:50] LABS: ALT (SGPT) 38 U/L (8-55); AST (SGOT) 26 U/L (5-34); Albumin 3.7 g/dL (3.4-4.8); Alkaline Phosphatase 106 U/L (40-110); Anion Gap 14 mmol/L (10-20); BUN (Urea Nitrogen) 23 mg/dL (8.4-25.7); Bilirubin, Total 0.4 mg/dL (0.2-1.2); Calc. Creatinine Clearance 0 mL/min (70-130); Calcium 9.9 mg/dL (7.8-10.44); Carbon Dioxide 29 mmol/L (23-31); Chloride 102 mmol/L (98-107); Estimated GFR 90; Globulin 3.1 g/dL (2.4-3.5); Glucose 85 mg/dL (83-110); Potassium 4.2 mmol/L (3.5-5.1); Protein, Total 6.8 g/dL (5.8-8.1); Sodium 141 mmol/L (136-145)
[2022-06-28 13:36] LABS: Bilirubin Negative (Negative); Blood, Urine Negative (Negative); Clarity Clear (Clear); Glucose, Urine (Dipstick) Negative (Negative); Ketone, Urine Negative (Negative); Leukocyte Negative (Negative); Nitrite Negative (Negative); Protein, Urine (Dipstick) Negative (Neg-Trace); Specific Gravity, Urine 1.015 (1.005-1.030); Urobilinogen 0.2 mg/dL (Less than 2)
[2022-06-28] MEDS ORDERED: Sodium Chloride 0.9% 50 ML ONE (18:18)
[2022-06-28] MEDS ORDERED: CEFAZOLIN 2 GM VIAL ONE (18:18)
== END 2022-06-28 20:28 | disposition short-term general hospital (02) ==
LOC: MADERS 11:35
DX: R53.1 Weakness (principal); I89.0 Lymphedema, not elsewhere classified; L03.116 Cellulitis of left lower limb; R29.6 Repeated falls; I10 Essential (primary) hypertension; E78.00 Pure hypercholesterolemia, unspecified; J44.9 Chronic obstructive pulmonary disease, unspecified; G47.30 Sleep apnea, unspecified; E66.9 Obesity, unspecified; Z68.45 Body mass index [BMI] 70 or greater, adult; Z79.82 Long term (current) use of aspirin; Z79.899 Other long term (current) drug therapy
CPT/HCPCS: 36415; 71045; 80053; 81003; 83605; 83880; 84443; 85025; 85379; 87040; 93005; 94760; 96365; J0690

== ENCOUNTER 2022-07-02 17:43 | Inpatient (IN) | payer MEDICARE, BC ==
[2022-07-02] MEDS ORDERED: Albuterol Sulfate 2.5 mg/3 ml Neb NEB PRN (20:44)
[2022-07-02] MEDS ORDERED: Acetaminophen 500 MG TAB PO PRN (20:46)
[2022-07-02] MEDS ORDERED: Temazepam 15 MG CAP PO SCH (21:00)
[2022-07-02] MEDS: Clotrimazole 1% Cream 15 GM TUBE TOP SCH (21:54)
[2022-07-02] MEDS: Tamsulosin HCl 0.4 MG CAP PO SCH (21:55)
[2022-07-02] MEDS: Senokot S 8.6-50 MG TAB PO SCH (21:55)
[2022-07-02] MEDS: Rosuvastatin 10 MG TAB PO SCH (21:55)
[2022-07-02] MEDS: LOVAZA 1 GM PO SCH (21:56)
[2022-07-02] MEDS: FLUTICASONE INH SCH (21:56)
[2022-07-02] MEDS: SALMETEROL INH SCH (21:56)
[2022-07-02] MEDS: Aspirin 325 MG TAB PO SCH (21:56)
[2022-07-02] MEDS: Emollient 15 oz bottle 450 ML, Triamcinolone Acetonide 200 MG TOP SCH (21:57)
[2022-07-02] MEDS: Temazepam 15 MG CAP PO SCH (23:37)
[2022-07-03 05:56] LABS: ALT (SGPT) 25 U/L (8-55); AST (SGOT) 24 U/L (5-34); Albumin 2.9 g/dL (3.4-4.8); Alkaline Phosphatase 91 U/L (40-110); Anion Gap 11 mmol/L (10-20); BUN (Urea Nitrogen) 17 mg/dL (8.4-25.7); Bilirubin, Total 0.3 mg/dL (0.2-1.2); Calc. Creatinine Clearance 208 mL/min (70-130); Calcium 8.4 mg/dL (7.8-10.44); Carbon Dioxide 28 mmol/L (23-31); Chloride 106 mmol/L (98-107); Estimated GFR 97; Globulin 2.5 g/dL (2.4-3.5); Glucose 100 mg/dL (83-110); Potassium 4.2 mmol/L (3.5-5.1); Protein, Total 5.4 g/dL (5.8-8.1); Sodium 141 mmol/L (136-145)
[2022-07-03 06:02] LABS: Eosinophils 3 % (0-10); Hemoglobin 12.6 g/dL (14.0-18.0); Lymphocytes 39 % (21-51); MDiff Complete? YES; Mean Corpuscular HGB CONC 31.9 g/dL (32.0-36.0); Mean Corpuscular Hemoglobin 29.6 pg (27.0-31.0); Mean Platelet Volume 7.2 fL (7.4-10.4); Monocytes 5 % (0-10); Neutrophil 52 % (42-75); Platelet Count 177 thou/uL (130-400); RBC Distribution Width 13.2 % (11.5-14.5); RBC Morphology Normal; Red Blood Cell (RBC) Count 4.25 mill/uL (4.70-6.10); White Blood Cell (WBC) Count 8.2 thou/uL (4.8-10.8)
[2022-07-03] MEDS ORDERED: Furosemide 20 MG TAB PO SCH (09:00)
[2022-07-03] MEDS: Ezetimibe 10 MG TAB PO SCH (09:18)
[2022-07-03] MEDS: Loratadine 10 MG TAB PO SCH (09:18)
[2022-07-03] MEDS: Senokot S 8.6-50 MG TAB PO SCH ×2 (09:18→22:35)
[2022-07-03] MEDS: Aspirin 325 MG TAB PO SCH ×2 (09:19→22:36)
[2022-07-03] MEDS: Clotrimazole 1% Cream 15 GM TUBE TOP SCH ×2 (09:19→22:29)
[2022-07-03] MEDS: LOVAZA 1 GM PO SCH ×2 (09:21→22:36)
[2022-07-03] MEDS: SALMETEROL INH SCH ×2 (09:21→22:22)
[2022-07-03] MEDS: FLUTICASONE INH SCH ×2 (09:21→22:22)
[2022-07-03] MEDS: Emollient 15 oz bottle 450 ML, Triamcinolone Acetonide 200 MG TOP SCH ×2 (09:22→22:37)
[2022-07-03] MEDS: cefTRIAXone\\ROCEPHIN 2 GM in Sodium Chloride 0.9% 100 ML IVPB SCH (12:00)
[2022-07-03] MEDS: Furosemide 40 MG TAB PO SCH (14:36)
[2022-07-03] MEDS: Tamsulosin HCl 0.4 MG CAP PO SCH (22:20)
[2022-07-03] MEDS: Temazepam 15 MG CAP PO SCH (22:20)
[2022-07-03] MEDS ORDERED: Ondansetron ODT 4 MG TAB SL PRN (22:34)
[2022-07-03] MEDS: Rosuvastatin 10 MG TAB PO SCH (22:35)
[2022-07-04] MEDS: Clotrimazole 1% Cream 15 GM TUBE TOP SCH ×2 (08:53→20:59)
[2022-07-04] MEDS: Ezetimibe 10 MG TAB PO SCH (08:54)
[2022-07-04] MEDS: Aspirin 325 MG TAB PO SCH ×2 (08:54→20:59)
[2022-07-04] MEDS: Enoxaparin Sodium 40 MG/0.4 ML SYRINGE SC SCH (08:54)
[2022-07-04] MEDS: SALMETEROL INH SCH ×2 (08:55→21:03)
[2022-07-04] MEDS: Loratadine 10 MG TAB PO SCH (08:55)
[2022-07-04] MEDS: LOVAZA 1 GM PO SCH ×2 (08:55→21:06)
[2022-07-04] MEDS: FLUTICASONE INH SCH ×2 (08:55→21:03)
[2022-07-04] MEDS: Furosemide 40 MG TAB PO SCH ×2 (08:55→15:44)
[2022-07-04] MEDS: Emollient 15 oz bottle 450 ML, Triamcinolone Acetonide 200 MG TOP SCH ×2 (08:56→21:07)
[2022-07-04] MEDS: Senokot S 8.6-50 MG TAB PO SCH ×2 (08:58→21:06)
[2022-07-04] MEDS: cefTRIAXone\\ROCEPHIN 2 GM in Sodium Chloride 0.9% 100 ML IVPB SCH (12:10)
[2022-07-04] MEDS ORDERED: Lantiseptic Ointment 130 GM JAR TOP PRN (14:14)
[2022-07-04] MEDS: Tamsulosin HCl 0.4 MG CAP PO SCH (20:59)
[2022-07-04] MEDS: Rosuvastatin 10 MG TAB PO SCH (20:59)
[2022-07-04] MEDS: Lantiseptic Ointment 130 GM JAR TOP SCH (21:00)
[2022-07-04] MEDS: Temazepam 15 MG CAP PO SCH (22:24)
[2022-07-05] MEDS: Clotrimazole 1% Cream 15 GM TUBE TOP SCH ×2 (08:29→20:11)
[2022-07-05] MEDS: Lantiseptic Ointment 130 GM JAR TOP SCH ×2 (08:29→20:11)
[2022-07-05] MEDS: Loratadine 10 MG TAB PO SCH (08:30)
[2022-07-05] MEDS: Ezetimibe 10 MG TAB PO SCH (08:30)
[2022-07-05] MEDS: Furosemide 40 MG TAB PO SCH ×2 (08:30→13:19)
[2022-07-05] MEDS: Aspirin 325 MG TAB PO SCH ×2 (08:30→20:09)
[2022-07-05] MEDS: Enoxaparin Sodium 40 MG/0.4 ML SYRINGE SC SCH (08:31)
[2022-07-05] MEDS: FLUTICASONE INH SCH ×2 (08:32→20:10)
[2022-07-05] MEDS: SALMETEROL INH SCH ×2 (08:32→20:10)
[2022-07-05] MEDS: LOVAZA 1 GM PO SCH ×2 (08:34→20:10)
[2022-07-05] MEDS: Emollient 15 oz bottle 450 ML, Triamcinolone Acetonide 200 MG TOP SCH ×2 (08:35→20:11)
[2022-07-05] MEDS: Senokot S 8.6-50 MG TAB PO SCH ×2 (08:35→20:11)
[2022-07-05] MEDS: cefTRIAXone\\ROCEPHIN 2 GM in Sodium Chloride 0.9% 100 ML IVPB SCH (11:53)
[2022-07-05] MEDS: Cephalexin 500 MG CAP PO SCH ×2 (17:08→20:09)
[2022-07-05] MEDS: Rosuvastatin 10 MG TAB PO SCH (20:09)
[2022-07-05] MEDS: Tamsulosin HCl 0.4 MG CAP PO SCH (20:09)
[2022-07-05] MEDS: Temazepam 15 MG CAP PO SCH (22:39)
[2022-07-06] MEDS: Aspirin 325 MG TAB PO SCH ×2 (08:04→20:47)
[2022-07-06] MEDS: Enoxaparin Sodium 40 MG/0.4 ML SYRINGE SC SCH (08:04)
[2022-07-06] MEDS: Cephalexin 500 MG CAP PO SCH ×4 (08:04→20:47)
[2022-07-06] MEDS: Clotrimazole 1% Cream 15 GM TUBE TOP SCH ×2 (08:04→20:48)
[2022-07-06] MEDS: Ezetimibe 10 MG TAB PO SCH (08:05)
[2022-07-06] MEDS: Furosemide 40 MG TAB PO SCH ×2 (08:05→13:22)
[2022-07-06] MEDS: Lantiseptic Ointment 130 GM JAR TOP SCH ×2 (08:05→20:49)
[2022-07-06] MEDS: SALMETEROL INH SCH ×2 (08:06→20:50)
[2022-07-06] MEDS: FLUTICASONE INH SCH ×2 (08:06→20:50)
[2022-07-06] MEDS: Loratadine 10 MG TAB PO SCH (08:06)
[2022-07-06] MEDS: Emollient 15 oz bottle 450 ML, Triamcinolone Acetonide 200 MG TOP SCH ×2 (08:07→20:48)
[2022-07-06] MEDS: Senokot S 8.6-50 MG TAB PO SCH ×2 (08:07→20:47)
[2022-07-06] MEDS: LOVAZA 1 GM PO SCH ×2 (08:07→20:51)
[2022-07-06] MEDS: Rosuvastatin 10 MG TAB PO SCH (20:47)
[2022-07-06] MEDS: Tamsulosin HCl 0.4 MG CAP PO SCH (20:47)
[2022-07-06] MEDS: Temazepam 15 MG CAP PO SCH (21:05)
[2022-07-07] MEDS: Enoxaparin Sodium 40 MG/0.4 ML SYRINGE SC SCH (08:19)
[2022-07-07] MEDS: Furosemide 40 MG TAB PO SCH ×2 (08:19→13:50)
[2022-07-07] MEDS: Senokot S 8.6-50 MG TAB PO SCH ×2 (08:19→21:27)
[2022-07-07] MEDS: Loratadine 10 MG TAB PO SCH (08:19)
[2022-07-07] MEDS: Aspirin 325 MG TAB PO SCH ×2 (08:19→21:27)
[2022-07-07] MEDS: Cephalexin 500 MG CAP PO SCH ×4 (08:19→21:27)
[2022-07-07] MEDS: Ezetimibe 10 MG TAB PO SCH (08:19)
[2022-07-07] MEDS: Emollient 15 oz bottle 450 ML, Triamcinolone Acetonide 200 MG TOP SCH ×2 (08:21→21:29)
[2022-07-07] MEDS: SALMETEROL INH SCH ×2 (08:22→21:28)
[2022-07-07] MEDS: FLUTICASONE INH SCH ×2 (08:22→21:28)
[2022-07-07] MEDS: Clotrimazole 1% Cream 15 GM TUBE TOP SCH ×2 (08:22→21:27)
[2022-07-07] MEDS: Lantiseptic Ointment 130 GM JAR TOP SCH ×2 (08:22→21:28)
[2022-07-07] MEDS: LOVAZA 1 GM PO SCH ×2 (08:23→21:29)
[2022-07-07] MEDS: Rosuvastatin 10 MG TAB PO SCH (21:27)
[2022-07-07] MEDS: Tamsulosin HCl 0.4 MG CAP PO SCH (21:27)
[2022-07-07] MEDS: Temazepam 15 MG CAP PO SCH (22:37)
[2022-07-08] MEDS: Furosemide 40 MG TAB PO SCH ×2 (08:38→14:50)
[2022-07-08] MEDS: Lantiseptic Ointment 130 GM JAR TOP SCH ×2 (08:38→21:57)
[2022-07-08] MEDS: Cephalexin 500 MG CAP PO SCH ×4 (08:38→21:57)
[2022-07-08] MEDS: Ezetimibe 10 MG TAB PO SCH (08:38)
[2022-07-08] MEDS: Aspirin 325 MG TAB PO SCH ×2 (08:38→21:56)
[2022-07-08] MEDS: Loratadine 10 MG TAB PO SCH (08:38)
[2022-07-08] MEDS: Senokot S 8.6-50 MG TAB PO SCH ×2 (08:38→21:57)
[2022-07-08] MEDS: Clotrimazole 1% Cream 15 GM TUBE TOP SCH ×2 (08:39→21:57)
[2022-07-08] MEDS: Emollient 15 oz bottle 450 ML, Triamcinolone Acetonide 200 MG TOP SCH ×2 (08:39→22:06)
[2022-07-08] MEDS: FLUTICASONE INH SCH ×2 (08:41→21:57)
[2022-07-08] MEDS: LOVAZA 1 GM PO SCH ×2 (08:41→21:57)
[2022-07-08] MEDS: SALMETEROL INH SCH ×2 (08:41→21:57)
[2022-07-08] MEDS: Enoxaparin Sodium 40 MG/0.4 ML SYRINGE SC SCH (08:41)
[2022-07-08] MEDS: Tamsulosin HCl 0.4 MG CAP PO SCH (21:56)
[2022-07-08] MEDS: Rosuvastatin 10 MG TAB PO SCH (21:56)
[2022-07-08] MEDS: Temazepam 15 MG CAP PO SCH (22:07)
[2022-07-09] MEDS: Aspirin 325 MG TAB PO SCH ×2 (09:10→21:23)
[2022-07-09] MEDS: Enoxaparin Sodium 40 MG/0.4 ML SYRINGE SC SCH (09:10)
[2022-07-09] MEDS: Cephalexin 500 MG CAP PO SCH ×4 (09:10→21:23)
[2022-07-09] MEDS: Lantiseptic Ointment 130 GM JAR TOP SCH ×2 (09:11→21:24)
[2022-07-09] MEDS: Ezetimibe 10 MG TAB PO SCH (09:11)
[2022-07-09] MEDS: Clotrimazole 1% Cream 15 GM TUBE TOP SCH ×2 (09:11→21:23)
[2022-07-09] MEDS: Senokot S 8.6-50 MG TAB PO SCH ×2 (09:11→21:23)
[2022-07-09] MEDS: Loratadine 10 MG TAB PO SCH (09:11)
[2022-07-09] MEDS: Furosemide 40 MG TAB PO SCH ×2 (09:11→13:25)
[2022-07-09] MEDS: LOVAZA 1 GM PO SCH ×2 (09:13→21:24)
[2022-07-09] MEDS: SALMETEROL INH SCH ×2 (09:13→21:24)
[2022-07-09] MEDS: Emollient 15 oz bottle 450 ML, Triamcinolone Acetonide 200 MG TOP SCH ×2 (09:13→22:06)
[2022-07-09] MEDS: FLUTICASONE INH SCH ×2 (09:13→21:24)
[2022-07-09] MEDS: Tamsulosin HCl 0.4 MG CAP PO SCH (21:23)
[2022-07-09] MEDS: Rosuvastatin 10 MG TAB PO SCH (21:23)
[2022-07-09] MEDS: Temazepam 15 MG CAP PO SCH (22:02)
[2022-07-10] MEDS: Cephalexin 500 MG CAP PO SCH ×4 (09:01→22:03)
[2022-07-10] MEDS: Aspirin 325 MG TAB PO SCH ×2 (09:01→22:03)
[2022-07-10] MEDS: Senokot S 8.6-50 MG TAB PO SCH ×2 (09:01→22:16)
[2022-07-10] MEDS: Ezetimibe 10 MG TAB PO SCH (09:01)
[2022-07-10] MEDS: Loratadine 10 MG TAB PO SCH (09:01)
[2022-07-10] MEDS: Furosemide 40 MG TAB PO SCH ×2 (09:02→13:55)
[2022-07-10] MEDS: Clotrimazole 1% Cream 15 GM TUBE TOP SCH ×2 (09:02→22:05)
[2022-07-10] MEDS: Lantiseptic Ointment 130 GM JAR TOP SCH ×2 (09:02→22:05)
[2022-07-10] MEDS: Enoxaparin Sodium 40 MG/0.4 ML SYRINGE SC SCH (09:02)
[2022-07-10] MEDS: LOVAZA 1 GM PO SCH ×2 (09:03→22:05)
[2022-07-10] MEDS: Emollient 15 oz bottle 450 ML, Triamcinolone Acetonide 200 MG TOP SCH ×2 (09:03→22:16)
[2022-07-10] MEDS: FLUTICASONE INH SCH ×2 (09:04→22:04)
[2022-07-10] MEDS: SALMETEROL INH SCH ×2 (09:04→22:04)
[2022-07-10] MEDS: Rosuvastatin 10 MG TAB PO SCH (21:59)
[2022-07-10] MEDS: Temazepam 15 MG CAP PO SCH (22:02)
[2022-07-10] MEDS: Tamsulosin HCl 0.4 MG CAP PO SCH (22:15)
[2022-07-11] MEDS: Cephalexin 500 MG CAP PO SCH ×4 (08:10→21:47)
[2022-07-11] MEDS: Aspirin 325 MG TAB PO SCH ×2 (08:10→21:47)
[2022-07-11] MEDS: Senokot S 8.6-50 MG TAB PO SCH ×2 (08:10→21:05)
[2022-07-11] MEDS: Ezetimibe 10 MG TAB PO SCH (08:10)
[2022-07-11] MEDS: Furosemide 40 MG TAB PO SCH ×2 (08:10→14:09)
[2022-07-11] MEDS: Lantiseptic Ointment 130 GM JAR TOP SCH ×2 (08:11→21:48)
[2022-07-11] MEDS: Loratadine 10 MG TAB PO SCH (08:11)
[2022-07-11] MEDS: Clotrimazole 1% Cream 15 GM TUBE TOP SCH ×2 (08:11→21:48)
[2022-07-11] MEDS: Enoxaparin Sodium 40 MG/0.4 ML SYRINGE SC SCH (08:11)
[2022-07-11] MEDS: FLUTICASONE INH SCH ×2 (08:12→21:48)
[2022-07-11] MEDS: Emollient 15 oz bottle 450 ML, Triamcinolone Acetonide 200 MG TOP SCH ×2 (08:12→21:49)
[2022-07-11] MEDS: LOVAZA 1 GM PO SCH ×2 (08:12→21:49)
[2022-07-11] MEDS: SALMETEROL INH SCH ×2 (08:12→21:48)
[2022-07-11] MEDS: Rosuvastatin 10 MG TAB PO SCH (21:47)
[2022-07-11] MEDS: Tamsulosin HCl 0.4 MG CAP PO SCH (21:47)
[2022-07-11] MEDS: Temazepam 15 MG CAP PO SCH (21:47)
[2022-07-12 05:27] LABS: #Basophils 0.1 thou/uL (0.0-0.2); #Eosinphils 0.4 thou/uL (0.0-0.7); #Lymphocytes 3.6 thou/uL (1.20-3.40); #Neutrophils 6.4 thou/uL (1.40-6.50); %Basophils 0.8 % (0.0-1.0); %Eosinophils 3.2 % (0.0-10.0); %Lymphocytes 31.5 % (21.0-51.0); %Monocytes 8.9 % (0.0-10.0); %Neutrophils 55.5 % (42.0-75.0); Hemoglobin 13.6 g/dL (14.0-18.0); Mean Corpuscular HGB CONC 31.3 g/dL (32.0-36.0); Mean Corpuscular Hemoglobin 28.9 pg (27.0-31.0); Mean Corpuscular Volume 92.5 fL (78.0-98.0); Platelet Count 252 thou/uL (130-400); RBC Distribution Width 13.1 % (11.5-14.5); White Blood Cell (WBC) Count 11.5 thou/uL (4.8-10.8)
[2022-07-12 05:42] LABS: Anion Gap 15 mmol/L (10-20); BUN (Urea Nitrogen) 18 mg/dL (8.4-25.7); Calc. Creatinine Clearance 162 mL/min (70-130); Calcium 9.2 mg/dL (7.8-10.44); Carbon Dioxide 28 mmol/L (23-31); Chloride 101 mmol/L (98-107); Estimated GFR 92; Glucose 102 mg/dL (83-110); Potassium 3.7 mmol/L (3.5-5.1); Sodium 140 mmol/L (136-145)
[2022-07-12] MEDS: Senokot S 8.6-50 MG TAB PO SCH ×2 (09:27→20:38)
[2022-07-12] MEDS: Loratadine 10 MG TAB PO SCH (09:27)
[2022-07-12] MEDS: Aspirin 325 MG TAB PO SCH ×2 (09:27→20:30)
[2022-07-12] MEDS: Furosemide 40 MG TAB PO SCH ×2 (09:27→14:25)
[2022-07-12] MEDS: Ezetimibe 10 MG TAB PO SCH (09:27)
[2022-07-12] MEDS: Cephalexin 500 MG CAP PO SCH ×4 (09:27→20:30)
[2022-07-12] MEDS: Enoxaparin Sodium 40 MG/0.4 ML SYRINGE SC SCH (09:29)
[2022-07-12] MEDS: FLUTICASONE INH SCH ×2 (09:29→20:33)
[2022-07-12] MEDS: LOVAZA 1 GM PO SCH ×2 (09:29→20:33)
[2022-07-12] MEDS: Lantiseptic Ointment 130 GM JAR TOP SCH ×2 (09:29→20:31)
[2022-07-12] MEDS: SALMETEROL INH SCH ×2 (09:29→20:33)
[2022-07-12] MEDS: Clotrimazole 1% Cream 15 GM TUBE TOP SCH ×2 (09:29→20:30)
[2022-07-12] MEDS: Emollient 15 oz bottle 450 ML, Triamcinolone Acetonide 200 MG TOP SCH ×2 (09:30→20:38)
[2022-07-12] MEDS: Rosuvastatin 10 MG TAB PO SCH (20:30)
[2022-07-12] MEDS: Tamsulosin HCl 0.4 MG CAP PO SCH (20:30)
[2022-07-12] MEDS: Temazepam 15 MG CAP PO SCH (22:25)
[2022-07-13] MEDS: Aspirin 325 MG TAB PO SCH ×2 (09:06→20:34)
[2022-07-13] MEDS: Ezetimibe 10 MG TAB PO SCH (09:06)
[2022-07-13] MEDS: Cephalexin 500 MG CAP PO SCH ×4 (09:06→20:34)
[2022-07-13] MEDS: Enoxaparin Sodium 40 MG/0.4 ML SYRINGE SC SCH (09:06)
[2022-07-13] MEDS: Furosemide 40 MG TAB PO SCH ×2 (09:07→13:52)
[2022-07-13] MEDS: Senokot S 8.6-50 MG TAB PO SCH ×2 (09:07→20:34)
[2022-07-13] MEDS: Clotrimazole 1% Cream 15 GM TUBE TOP SCH ×2 (09:07→20:37)
[2022-07-13] MEDS: Loratadine 10 MG TAB PO SCH (09:07)
[2022-07-13] MEDS: Emollient 15 oz bottle 450 ML, Triamcinolone Acetonide 200 MG TOP SCH ×2 (09:07→20:37)
[2022-07-13] MEDS: Lantiseptic Ointment 130 GM JAR TOP SCH ×2 (09:07→20:38)
[2022-07-13] MEDS: FLUTICASONE INH SCH ×2 (09:10→20:32)
[2022-07-13] MEDS: SALMETEROL INH SCH ×2 (09:10→20:32)
[2022-07-13] MEDS: LOVAZA 1 GM PO SCH ×2 (09:10→20:33)
[2022-07-13] MEDS: Tamsulosin HCl 0.4 MG CAP PO SCH (20:34)
[2022-07-13] MEDS: Rosuvastatin 10 MG TAB PO SCH (20:34)
[2022-07-13] MEDS: Temazepam 15 MG CAP PO SCH (22:40)
[2022-07-14] MEDS: Clotrimazole 1% Cream 15 GM TUBE TOP SCH ×2 (08:42→20:34)
[2022-07-14] MEDS: Lantiseptic Ointment 130 GM JAR TOP SCH ×2 (08:43→20:34)
[2022-07-14] MEDS: Senokot S 8.6-50 MG TAB PO SCH ×2 (08:43→20:33)
[2022-07-14] MEDS: Furosemide 40 MG TAB PO SCH ×2 (08:43→13:22)
[2022-07-14] MEDS: Aspirin 325 MG TAB PO SCH ×2 (08:43→20:33)
[2022-07-14] MEDS: Loratadine 10 MG TAB PO SCH (08:43)
[2022-07-14] MEDS: Cephalexin 500 MG CAP PO SCH ×4 (08:43→20:33)
[2022-07-14] MEDS: Ezetimibe 10 MG TAB PO SCH (08:43)
[2022-07-14] MEDS: Enoxaparin Sodium 40 MG/0.4 ML SYRINGE SC SCH (08:44)
[2022-07-14] MEDS: LOVAZA 1 GM PO SCH ×2 (08:44→20:39)
[2022-07-14] MEDS: Emollient 15 oz bottle 450 ML, Triamcinolone Acetonide 200 MG TOP SCH ×2 (08:44→20:35)
[2022-07-14] MEDS: FLUTICASONE INH SCH ×2 (08:45→20:39)
[2022-07-14] MEDS: SALMETEROL INH SCH ×2 (08:45→20:39)
[2022-07-14] MEDS: Rosuvastatin 10 MG TAB PO SCH (20:33)
[2022-07-14] MEDS: Tamsulosin HCl 0.4 MG CAP PO SCH (20:33)
[2022-07-14] MEDS: Temazepam 15 MG CAP PO SCH (22:18)
[2022-07-15] MEDS: Aspirin 325 MG TAB PO SCH ×2 (08:27→20:07)
[2022-07-15] MEDS: Furosemide 40 MG TAB PO SCH ×2 (08:27→12:52)
[2022-07-15] MEDS: Enoxaparin Sodium 40 MG/0.4 ML SYRINGE SC SCH (08:27)
[2022-07-15] MEDS: Cephalexin 500 MG CAP PO SCH ×3 (08:27→16:56)
[2022-07-15] MEDS: Ezetimibe 10 MG TAB PO SCH (08:27)
[2022-07-15] MEDS: Senokot S 8.6-50 MG TAB PO SCH ×2 (08:27→20:07)
[2022-07-15] MEDS: Loratadine 10 MG TAB PO SCH (08:27)
[2022-07-15] MEDS: Clotrimazole 1% Cream 15 GM TUBE TOP SCH ×2 (08:27→20:10)
[2022-07-15] MEDS: SALMETEROL INH SCH ×2 (08:28→20:06)
[2022-07-15] MEDS: LOVAZA 1 GM PO SCH ×2 (08:28→20:05)
[2022-07-15] MEDS: FLUTICASONE INH SCH ×2 (08:28→20:06)
[2022-07-15] MEDS: Emollient 15 oz bottle 450 ML, Triamcinolone Acetonide 200 MG TOP SCH ×2 (08:28→20:08)
[2022-07-15] MEDS: Lantiseptic Ointment 130 GM JAR TOP SCH ×2 (08:28→20:07)
[2022-07-15] MEDS: Rosuvastatin 10 MG TAB PO SCH (20:07)
[2022-07-15] MEDS: Tamsulosin HCl 0.4 MG CAP PO SCH (20:07)
[2022-07-15] MEDS: Temazepam 15 MG CAP PO SCH (22:15)
[2022-07-16] MEDS: Enoxaparin Sodium 40 MG/0.4 ML SYRINGE SC SCH (07:54)
[2022-07-16] MEDS: Furosemide 40 MG TAB PO SCH (07:54)
[2022-07-16] MEDS: Aspirin 325 MG TAB PO SCH (07:54)
[2022-07-16] MEDS: Ezetimibe 10 MG TAB PO SCH (07:54)
[2022-07-16] MEDS: Senokot S 8.6-50 MG TAB PO SCH (07:55)
[2022-07-16] MEDS: Clotrimazole 1% Cream 15 GM TUBE TOP SCH (07:55)
[2022-07-16] MEDS: Loratadine 10 MG TAB PO SCH (07:55)
[2022-07-16] MEDS: Lantiseptic Ointment 130 GM JAR TOP SCH (07:56)
[2022-07-16] MEDS: SALMETEROL INH SCH (07:56)
[2022-07-16] MEDS: FLUTICASONE INH SCH (07:56)
[2022-07-16] MEDS: LOVAZA 1 GM PO SCH (07:56)
[2022-07-16] MEDS: Emollient 15 oz bottle 450 ML, Triamcinolone Acetonide 200 MG TOP SCH (07:57)
[2022-07-16 10:12] VITALS: BMI 39.6
[2022-07-16 12:35] VITALS: BP 136/77; TEMP 97.7
== END 2022-07-16 13:35 | disposition home health service (06) | DRG 603 ==
LOC: MADMS 17:43
PROVIDERS: ADMIT Family Medicine; ATTEND Family Medicine
DX: L03.116 Cellulitis of left lower limb (principal); E66.01 Morbid (severe) obesity due to excess calories; J44.9 Chronic obstructive pulmonary disease, unspecified; G47.33 Obstructive sleep apnea (adult) (pediatric); I87.2 Venous insufficiency (chronic) (peripheral); Z96.612 Presence of left artificial shoulder joint; I10 Essential (primary) hypertension; E78.5 Hyperlipidemia, unspecified; I35.0 Nonrheumatic aortic (valve) stenosis; Z96.653 Presence of artificial knee joint, bilateral; K59.00 Constipation, unspecified; I89.0 Lymphedema, not elsewhere classified; R53.81 Other malaise; I95.1 Orthostatic hypotension; Z90.89 Acquired absence of other organs; Z98.890 Other specified postprocedural states; Z79.899 Other long term (current) drug therapy; Z68.39 Body mass index [BMI] 39.0-39.9, adult; Z79.82 Long term (current) use of aspirin; Z20.822 Contact with and (suspected) exposure to COVID-19
CPT/HCPCS: 36415; 80048; 80053; 85025; 87811; J0696; J1650; J3301; J3490; U0003; U0005

== ENCOUNTER 2022-08-22 14:09 | Emergency (ER) | payer MEDICARE, BC ==
[2022-08-22] MEDS ORDERED: traMADol HCl 50 MG TAB ONE (14:41)
[2022-08-22] MEDS ORDERED: Cephalexin 500 MG CAP ONE (14:41)
[2022-08-22] MEDS ORDERED: Boostrix 0.5 ML (Tdap) VIAL (>/=7 yrs of age) ONE (14:42)
[2022-08-22] MEDS ORDERED: Silver Sulfadiazine 50 GM TUBE ONE ×2 (14:42→14:59)
[2022-08-22] MEDS ORDERED: traMADol HCl 50 MG TAB PO SCH (14:45)
[2022-08-22] MEDS ORDERED: Cephalexin 500 MG CAP PO SCH (14:45)
[2022-08-22] MEDS ORDERED: Boostrix 0.5 ML (Tdap) VIAL (>/=7 yrs of age) IM ONE (14:45)
[2022-08-22] MEDS ORDERED: Silver Sulfadiazine 50 GM JAR TP SCH (14:45)
[2022-08-22] MEDS ORDERED: Silver Sulfadiazine 50 GM TUBE TOP SCH (15:00)
== END 2022-08-22 15:09 | disposition home or self-care (01) ==
LOC: MADERS 14:09
DX: T21.22XA Burn of second degree of abdominal wall, initial encounter (principal); T24.212A Burn of second degree of left thigh, initial encounter; Z23 Encounter for immunization; X10.0XXA Contact with hot drinks, initial encounter
CPT/HCPCS: 90471; 90715

== ENCOUNTER 2022-10-28 11:39 | Inpatient (IN) | payer MEDICARE, BC ==
[2022-10-28] MEDS ORDERED: Loratadine 10 MG TAB PO PRN (16:15)
[2022-10-28] MEDS ORDERED: traMADol HCl 50 MG TAB PO PRN (16:15)
[2022-10-28] MEDS ORDERED: Diclofenac 1% 100 GM GEL TP PRN (16:52)
[2022-10-28] MEDS ORDERED: Lantiseptic Ointment 130 GM JAR TOP PRN (17:12)
[2022-10-28] MEDS ORDERED: Mometasone/Formoterol 200/5 60 PUFF INH SCH (19:00)
[2022-10-28] MEDS ORDERED: WIXELA INH SCH (19:00)
[2022-10-28] MEDS ORDERED: Temazepam 15 MG CAP PO SCH (21:00)
[2022-10-28] MEDS: Ezetimibe 10 MG TAB PO SCH (22:03)
[2022-10-28] MEDS: Rosuvastatin 10 MG TAB PO SCH (22:03)
[2022-10-28] MEDS: Lantiseptic Ointment 130 GM JAR TOP SCH (22:03)
[2022-10-28] MEDS: Senokot S 8.6-50 MG TAB PO SCH (22:03)
[2022-10-28] MEDS: Ascorbic Acid 500 mg Chewable Tablet PO SCH (22:04)
[2022-10-28] MEDS: Tamsulosin HCl 0.4 MG CAP PO SCH (22:04)
[2022-10-28] MEDS: Zinc Sulfate 220 MG CAP PO SCH (22:04)
[2022-10-28] MEDS: Multivitamin W/ Minerals 1 TAB PO SCH (22:04)
[2022-10-28] MEDS: Calcium Carbonate 500 MG TAB PO SCH (22:04)
[2022-10-28] MEDS: Omega-3 Acid Ethyl Esters [Lovaza] 1 GM Capsule PO SCH (22:05)
[2022-10-28] MEDS: WIXELA INH SCH (22:05)
[2022-10-28] MEDS: Temazepam 15 MG CAP PO SCH (22:53)
[2022-10-29 05:28] LABS: #Basophils 0.1 thou/uL (0.0-0.2); #Eosinphils 0.4 thou/uL (0.0-0.7); #Lymphocytes 2.8 thou/uL (1.20-3.40); #Monocytes 0.9 thou/uL (0.11-0.59); #Neutrophils 6.3 thou/uL (1.40-6.50); %Basophils 1.1 % (0.0-1.0); %Eosinophils 3.7 % (0.0-10.0); %Lymphocytes 26.3 % (21.0-51.0); %Monocytes 8.8 % (0.0-10.0); %Neutrophils 60.1 % (42.0-75.0); Hemoglobin 14.7 g/dL (14.0-18.0); Mean Corpuscular HGB CONC 32.8 g/dL (32.0-36.0); Mean Corpuscular Hemoglobin 30.4 pg (27.0-31.0); Mean Corpuscular Volume 92.7 fl (78.0-98.0); Mean Platelet Volume 5.6 fL (7.4-10.4); Platelet Count 270 10x3/uL (130-400); RBC Distribution Width 12.4 % (11.5-14.5); Red Blood Cell (RBC) Count 4.84 mill/uL (4.70-6.10); White Blood Cell (WBC) Count 10.5 10x3/uL (4.8-10.8)
[2022-10-29 05:50] LABS: ALT (SGPT) 39 U/L (8-55); AST (SGOT) 28 U/L (5-34); Albumin 3.3 g/dL (3.4-4.8); Alkaline Phosphatase 119 U/L (40-110); Anion Gap 14 mmol/L (10-20); BUN (Urea Nitrogen) 20 mg/dL (8.4-25.7); Bilirubin, Total 0.6 mg/dL (0.2-1.2); Calc. Creatinine Clearance 140 mL/min (70-130); Calcium 9.2 mg/dL (7.8-10.44); Carbon Dioxide 26 mmol/L (23-31); Chloride 103 mmol/L (98-107); Estimated GFR 88; Globulin 2.7 g/dL (2.4-3.5); Glucose 106 mg/dL (83-110); Potassium 3.9 mmol/L (3.5-5.1); Sodium 139 mmol/L (136-145)
[2022-10-29 06:00] LABS: SARS-CoV-2 NAA Rapid Test Not Detected (NotDetected)
[2022-10-29] MEDS: Calcium Carbonate 500 MG TAB PO SCH ×3 (08:43→20:42)
[2022-10-29] MEDS: Cyanocobalamin (Vitamin B-12) 1,000 MCG TAB PO SCH (08:43)
[2022-10-29] MEDS: Bupropion 150 MG XL TAB PO SCH (08:44)
[2022-10-29] MEDS: Senokot S 8.6-50 MG TAB PO SCH ×2 (08:44→20:41)
[2022-10-29] MEDS: Furosemide 40 MG TAB PO SCH (08:44)
[2022-10-29] MEDS: Aspirin 81 mg Enteric Coated Tablet PO SCH (08:44)
[2022-10-29] MEDS: Lantiseptic Ointment 130 GM JAR TOP SCH ×2 (08:45→20:45)
[2022-10-29] MEDS: WIXELA INH SCH ×2 (08:53→20:47)
[2022-10-29] MEDS: Omega-3 Acid Ethyl Esters [Lovaza] 1 GM Capsule PO SCH ×2 (09:00→20:45)
[2022-10-29] MEDS ORDERED: Meloxicam 7.5 MG TAB PO SCH (09:00)
[2022-10-29] MEDS: Ascorbic Acid 500 mg Chewable Tablet PO SCH (20:40)
[2022-10-29] MEDS: Multivitamin W/ Minerals 1 TAB PO SCH (20:41)
[2022-10-29] MEDS: Ezetimibe 10 MG TAB PO SCH (20:42)
[2022-10-29] MEDS: Tamsulosin HCl 0.4 MG CAP PO SCH (20:42)
[2022-10-29] MEDS: Rosuvastatin 10 MG TAB PO SCH (20:43)
[2022-10-29] MEDS: Zinc Sulfate 220 MG CAP PO SCH (20:43)
[2022-10-29] MEDS: Temazepam 15 MG CAP PO SCH (22:00)
[2022-10-30] MEDS: Bupropion 150 MG XL TAB PO SCH (08:46)
[2022-10-30] MEDS: Calcium Carbonate 500 MG TAB PO SCH ×3 (08:46→21:47)
[2022-10-30] MEDS: Cyanocobalamin (Vitamin B-12) 1,000 MCG TAB PO SCH (08:46)
[2022-10-30] MEDS: Senokot S 8.6-50 MG TAB PO SCH ×2 (08:46→21:47)
[2022-10-30] MEDS: Aspirin 81 mg Enteric Coated Tablet PO SCH (08:46)
[2022-10-30] MEDS: Furosemide 40 MG TAB PO SCH (08:46)
[2022-10-30] MEDS: Lantiseptic Ointment 130 GM JAR TOP SCH ×2 (08:49→21:50)
[2022-10-30] MEDS: Omega-3 Acid Ethyl Esters [Lovaza] 1 GM Capsule PO SCH ×2 (08:50→21:53)
[2022-10-30] MEDS: WIXELA INH SCH ×2 (08:51→21:54)
[2022-10-30] MEDS: Ascorbic Acid 500 mg Chewable Tablet PO SCH (21:45)
[2022-10-30] MEDS: Zinc Sulfate 220 MG CAP PO SCH (21:46)
[2022-10-30] MEDS: Ezetimibe 10 MG TAB PO SCH (21:46)
[2022-10-30] MEDS: Rosuvastatin 10 MG TAB PO SCH (21:46)
[2022-10-30] MEDS: Multivitamin W/ Minerals 1 TAB PO SCH (21:47)
[2022-10-30] MEDS: Tamsulosin HCl 0.4 MG CAP PO SCH (21:47)
[2022-10-30] MEDS: Temazepam 15 MG CAP PO SCH (22:32)
[2022-10-31] MEDS: Furosemide 40 MG TAB PO SCH (08:15)
[2022-10-31] MEDS: Aspirin 81 mg Enteric Coated Tablet PO SCH (08:15)
[2022-10-31] MEDS: Cyanocobalamin (Vitamin B-12) 1,000 MCG TAB PO SCH (08:15)
[2022-10-31] MEDS: Senokot S 8.6-50 MG TAB PO SCH ×2 (08:15→20:00)
[2022-10-31] MEDS: Bupropion 150 MG XL TAB PO SCH (08:16)
[2022-10-31] MEDS: Calcium Carbonate 500 MG TAB PO SCH ×3 (08:16→20:00)
[2022-10-31] MEDS: Omega-3 Acid Ethyl Esters [Lovaza] 1 GM Capsule PO SCH ×2 (08:19→20:09)
[2022-10-31] MEDS: WIXELA INH SCH ×2 (08:20→20:10)
[2022-10-31] MEDS: Lantiseptic Ointment 130 GM JAR TOP SCH ×2 (08:45→20:09)
[2022-10-31] MEDS: Meloxicam 7.5 MG TAB PO PRN (18:54)
[2022-10-31] MEDS: Rosuvastatin 10 MG TAB PO SCH (20:01)
[2022-10-31] MEDS: Tamsulosin HCl 0.4 MG CAP PO SCH (20:01)
[2022-10-31] MEDS: Ezetimibe 10 MG TAB PO SCH (20:01)
[2022-10-31] MEDS: Zinc Sulfate 220 MG CAP PO SCH (20:02)
[2022-10-31] MEDS: Multivitamin W/ Minerals 1 TAB PO SCH (20:02)
[2022-10-31] MEDS: Ascorbic Acid 500 mg Chewable Tablet PO SCH (20:02)
[2022-10-31] MEDS: Temazepam 15 MG CAP PO SCH (22:08)
[2022-11-01] MEDS: Senokot S 8.6-50 MG TAB PO SCH ×2 (09:22→21:26)
[2022-11-01] MEDS: Furosemide 40 MG TAB PO SCH (09:22)
[2022-11-01] MEDS: Calcium Carbonate 500 MG TAB PO SCH ×3 (09:22→22:10)
[2022-11-01] MEDS: Aspirin 81 mg Enteric Coated Tablet PO SCH (09:22)
[2022-11-01] MEDS: Cyanocobalamin (Vitamin B-12) 1,000 MCG TAB PO SCH (09:22)
[2022-11-01] MEDS: Bupropion 150 MG XL TAB PO SCH (09:23)
[2022-11-01] MEDS: Lantiseptic Ointment 130 GM JAR TOP SCH ×2 (09:23→21:28)
[2022-11-01] MEDS: Omega-3 Acid Ethyl Esters [Lovaza] 1 GM Capsule PO SCH ×2 (09:24→21:28)
[2022-11-01] MEDS: WIXELA INH SCH ×2 (09:25→21:28)
[2022-11-01] MEDS: Acetaminophen 500 MG TAB PO PRN (14:42)
[2022-11-01] MEDS: Multivitamin W/ Minerals 1 TAB PO SCH (21:26)
[2022-11-01] MEDS: Zinc Sulfate 220 MG CAP PO SCH (21:26)
[2022-11-01] MEDS: Tamsulosin HCl 0.4 MG CAP PO SCH (21:27)
[2022-11-01] MEDS: Rosuvastatin 10 MG TAB PO SCH (21:27)
[2022-11-01] MEDS: Ezetimibe 10 MG TAB PO SCH (21:27)
[2022-11-01] MEDS: Ascorbic Acid 500 mg Chewable Tablet PO SCH (21:27)
[2022-11-01] MEDS: Temazepam 15 MG CAP PO SCH (22:14)
[2022-11-02] MEDS: Bupropion 150 MG XL TAB PO SCH (09:11)
[2022-11-02] MEDS: Aspirin 81 mg Enteric Coated Tablet PO SCH (09:11)
[2022-11-02] MEDS: Senokot S 8.6-50 MG TAB PO SCH ×2 (09:12→20:09)
[2022-11-02] MEDS: Furosemide 40 MG TAB PO SCH (09:12)
[2022-11-02] MEDS: Cyanocobalamin (Vitamin B-12) 1,000 MCG TAB PO SCH (09:12)
[2022-11-02] MEDS: Calcium Carbonate 500 MG TAB PO SCH ×3 (09:12→20:09)
[2022-11-02] MEDS: Lantiseptic Ointment 130 GM JAR TOP SCH ×2 (09:12→20:09)
[2022-11-02] MEDS: Acetaminophen 500 MG TAB PO PRN ×2 (09:12→15:46)
[2022-11-02] MEDS: WIXELA INH SCH ×2 (09:14→20:10)
[2022-11-02] MEDS: Omega-3 Acid Ethyl Esters [Lovaza] 1 GM Capsule PO SCH ×2 (09:14→20:07)
[2022-11-02] MEDS: Ascorbic Acid 500 mg Chewable Tablet PO SCH (20:07)
[2022-11-02] MEDS: Rosuvastatin 10 MG TAB PO SCH (20:07)
[2022-11-02] MEDS: Zinc Sulfate 220 MG CAP PO SCH (20:07)
[2022-11-02] MEDS: Tamsulosin HCl 0.4 MG CAP PO SCH (20:09)
[2022-11-02] MEDS: Multivitamin W/ Minerals 1 TAB PO SCH (20:09)
[2022-11-02] MEDS: Ezetimibe 10 MG TAB PO SCH (20:09)
[2022-11-02] MEDS: Temazepam 15 MG CAP PO SCH (22:11)
[2022-11-03] MEDS: Furosemide 40 MG TAB PO SCH (09:08)
[2022-11-03] MEDS: Aspirin 81 mg Enteric Coated Tablet PO SCH (09:08)
[2022-11-03] MEDS: Cyanocobalamin (Vitamin B-12) 1,000 MCG TAB PO SCH (09:08)
[2022-11-03] MEDS: Bupropion 150 MG XL TAB PO SCH (09:08)
[2022-11-03] MEDS: Senokot S 8.6-50 MG TAB PO SCH ×2 (09:09→20:48)
[2022-11-03] MEDS: Calcium Carbonate 500 MG TAB PO SCH ×3 (09:09→20:48)
[2022-11-03] MEDS: Omega-3 Acid Ethyl Esters [Lovaza] 1 GM Capsule PO SCH ×2 (09:11→21:00)
[2022-11-03] MEDS: WIXELA INH SCH ×2 (09:15→21:00)
[2022-11-03] MEDS: Lantiseptic Ointment 130 GM JAR TOP SCH ×2 (09:15→21:00)
[2022-11-03] MEDS: Tamsulosin HCl 0.4 MG CAP PO SCH (20:48)
[2022-11-03] MEDS: Ascorbic Acid 500 mg Chewable Tablet PO SCH (20:48)
[2022-11-03] MEDS: Multivitamin W/ Minerals 1 TAB PO SCH (20:48)
[2022-11-03] MEDS: Rosuvastatin 10 MG TAB PO SCH (20:48)
[2022-11-03] MEDS: Zinc Sulfate 220 MG CAP PO SCH (20:48)
[2022-11-03] MEDS: Ezetimibe 10 MG TAB PO SCH (20:48)
[2022-11-03] MEDS: Temazepam 15 MG CAP PO SCH (23:06)
[2022-11-04] MEDS: WIXELA INH SCH ×2 (09:01→21:18)
[2022-11-04] MEDS: Cyanocobalamin (Vitamin B-12) 1,000 MCG TAB PO SCH (09:01)
[2022-11-04] MEDS: Furosemide 40 MG TAB PO SCH (09:01)
[2022-11-04] MEDS: Calcium Carbonate 500 MG TAB PO SCH ×3 (09:01→21:17)
[2022-11-04] MEDS: Bupropion 150 MG XL TAB PO SCH (09:01)
[2022-11-04] MEDS: Senokot S 8.6-50 MG TAB PO SCH ×2 (09:02→21:17)
[2022-11-04] MEDS: Lantiseptic Ointment 130 GM JAR TOP SCH ×2 (09:02→21:17)
[2022-11-04] MEDS: Aspirin 81 mg Enteric Coated Tablet PO SCH (09:02)
[2022-11-04] MEDS: Omega-3 Acid Ethyl Esters [Lovaza] 1 GM Capsule PO SCH ×2 (09:02→21:18)
[2022-11-04] MEDS: Zinc Sulfate 220 MG CAP PO SCH (21:17)
[2022-11-04] MEDS: Ascorbic Acid 500 mg Chewable Tablet PO SCH (21:17)
[2022-11-04] MEDS: Multivitamin W/ Minerals 1 TAB PO SCH (21:17)
[2022-11-04] MEDS: Tamsulosin HCl 0.4 MG CAP PO SCH (21:17)
[2022-11-04] MEDS: Ezetimibe 10 MG TAB PO SCH (21:17)
[2022-11-04] MEDS: Rosuvastatin 10 MG TAB PO SCH (21:18)
[2022-11-04] MEDS: Temazepam 15 MG CAP PO SCH (22:54)
[2022-11-05] MEDS: Aspirin 81 mg Enteric Coated Tablet PO SCH (08:28)
[2022-11-05] MEDS: Bupropion 150 MG XL TAB PO SCH (08:28)
[2022-11-05] MEDS: Calcium Carbonate 500 MG TAB PO SCH ×3 (08:28→21:51)
[2022-11-05] MEDS: Cyanocobalamin (Vitamin B-12) 1,000 MCG TAB PO SCH (08:28)
[2022-11-05] MEDS: Furosemide 40 MG TAB PO SCH (08:28)
[2022-11-05] MEDS: Senokot S 8.6-50 MG TAB PO SCH ×2 (08:28→21:53)
[2022-11-05] MEDS: WIXELA INH SCH ×2 (08:29→21:58)
[2022-11-05] MEDS: Lantiseptic Ointment 130 GM JAR TOP SCH ×2 (08:29→21:57)
[2022-11-05] MEDS: Omega-3 Acid Ethyl Esters [Lovaza] 1 GM Capsule PO SCH ×2 (08:29→21:56)
[2022-11-05] MEDS: Ascorbic Acid 500 mg Chewable Tablet PO SCH (21:51)
[2022-11-05] MEDS: Multivitamin W/ Minerals 1 TAB PO SCH (21:52)
[2022-11-05] MEDS: Ezetimibe 10 MG TAB PO SCH (21:52)
[2022-11-05] MEDS: Rosuvastatin 10 MG TAB PO SCH (21:53)
[2022-11-05] MEDS: Tamsulosin HCl 0.4 MG CAP PO SCH (21:53)
[2022-11-05] MEDS: Zinc Sulfate 220 MG CAP PO SCH (21:54)
[2022-11-05] MEDS: Temazepam 15 MG CAP PO SCH (22:48)
[2022-11-06] MEDS: Senokot S 8.6-50 MG TAB PO SCH ×2 (08:50→21:25)
[2022-11-06] MEDS: Calcium Carbonate 500 MG TAB PO SCH ×3 (08:50→21:23)
[2022-11-06] MEDS: Aspirin 81 mg Enteric Coated Tablet PO SCH (08:50)
[2022-11-06] MEDS: Furosemide 40 MG TAB PO SCH (08:50)
[2022-11-06] MEDS: Cyanocobalamin (Vitamin B-12) 1,000 MCG TAB PO SCH (08:50)
[2022-11-06] MEDS: Bupropion 150 MG XL TAB PO SCH (08:50)
[2022-11-06] MEDS: WIXELA INH SCH ×2 (08:52→21:24)
[2022-11-06] MEDS: Lantiseptic Ointment 130 GM JAR TOP SCH ×2 (08:52→21:28)
[2022-11-06] MEDS: Omega-3 Acid Ethyl Esters [Lovaza] 1 GM Capsule PO SCH ×2 (08:52→21:24)
[2022-11-06] MEDS: Ascorbic Acid 500 mg Chewable Tablet PO SCH (21:22)
[2022-11-06] MEDS: Ezetimibe 10 MG TAB PO SCH (21:23)
[2022-11-06] MEDS: Multivitamin W/ Minerals 1 TAB PO SCH (21:23)
[2022-11-06] MEDS: Rosuvastatin 10 MG TAB PO SCH (21:25)
[2022-11-06] MEDS: Zinc Sulfate 220 MG CAP PO SCH (21:25)
[2022-11-06] MEDS: Tamsulosin HCl 0.4 MG CAP PO SCH (21:25)
[2022-11-06] MEDS: Temazepam 15 MG CAP PO SCH (23:06)
[2022-11-07] MEDS: Furosemide 40 MG TAB PO SCH (08:19)
[2022-11-07] MEDS: Aspirin 81 mg Enteric Coated Tablet PO SCH (08:19)
[2022-11-07] MEDS: Cyanocobalamin (Vitamin B-12) 1,000 MCG TAB PO SCH (08:19)
[2022-11-07] MEDS: Senokot S 8.6-50 MG TAB PO SCH ×2 (08:19→20:57)
[2022-11-07] MEDS: Bupropion 150 MG XL TAB PO SCH (08:19)
[2022-11-07] MEDS: Calcium Carbonate 500 MG TAB PO SCH ×3 (08:19→20:56)
[2022-11-07] MEDS: Omega-3 Acid Ethyl Esters [Lovaza] 1 GM Capsule PO SCH ×2 (08:20→20:59)
[2022-11-07] MEDS: WIXELA INH SCH ×2 (08:21→20:58)
[2022-11-07] MEDS: Lantiseptic Ointment 130 GM JAR TOP SCH ×2 (08:24→20:56)
[2022-11-07] MEDS: Ascorbic Acid 500 mg Chewable Tablet PO SCH (20:55)
[2022-11-07] MEDS: Ezetimibe 10 MG TAB PO SCH (20:56)
[2022-11-07] MEDS: Tamsulosin HCl 0.4 MG CAP PO SCH (20:57)
[2022-11-07] MEDS: Zinc Sulfate 220 MG CAP PO SCH (20:57)
[2022-11-07] MEDS: Multivitamin W/ Minerals 1 TAB PO SCH (20:57)
[2022-11-07] MEDS: Rosuvastatin 10 MG TAB PO SCH (20:57)
[2022-11-07] MEDS: Temazepam 15 MG CAP PO SCH (22:25)
[2022-11-08] MEDS: Lantiseptic Ointment 130 GM JAR TOP SCH ×2 (08:20→21:20)
[2022-11-08] MEDS: Senokot S 8.6-50 MG TAB PO SCH ×2 (08:20→21:13)
[2022-11-08] MEDS: Furosemide 40 MG TAB PO SCH (08:20)
[2022-11-08] MEDS: Cyanocobalamin (Vitamin B-12) 1,000 MCG TAB PO SCH (08:20)
[2022-11-08] MEDS: Calcium Carbonate 500 MG TAB PO SCH ×3 (08:20→21:13)
[2022-11-08] MEDS: Bupropion 150 MG XL TAB PO SCH (08:20)
[2022-11-08] MEDS: Aspirin 81 mg Enteric Coated Tablet PO SCH (08:20)
[2022-11-08] MEDS: Omega-3 Acid Ethyl Esters [Lovaza] 1 GM Capsule PO SCH ×2 (08:21→21:15)
[2022-11-08] MEDS: WIXELA INH SCH ×2 (08:21→21:10)
[2022-11-08] MEDS: Tamsulosin HCl 0.4 MG CAP PO SCH (21:12)
[2022-11-08] MEDS: Multivitamin W/ Minerals 1 TAB PO SCH (21:12)
[2022-11-08] MEDS: Rosuvastatin 10 MG TAB PO SCH (21:13)
[2022-11-08] MEDS: Meloxicam 7.5 MG TAB PO PRN (21:13)
[2022-11-08] MEDS: Zinc Sulfate 220 MG CAP PO SCH (21:13)
[2022-11-08] MEDS: Ezetimibe 10 MG TAB PO SCH (21:13)
[2022-11-08] MEDS: Temazepam 15 MG CAP PO SCH (21:15)
[2022-11-08] MEDS: Ascorbic Acid 500 mg Chewable Tablet PO SCH (21:20)
[2022-11-09] MEDS: Omega-3 Acid Ethyl Esters [Lovaza] 1 GM Capsule PO SCH ×2 (08:29→20:35)
[2022-11-09] MEDS: WIXELA INH SCH ×2 (08:30→20:35)
[2022-11-09] MEDS: Senokot S 8.6-50 MG TAB PO SCH ×2 (08:31→20:33)
[2022-11-09] MEDS: Furosemide 40 MG TAB PO SCH (08:31)
[2022-11-09] MEDS: Cyanocobalamin (Vitamin B-12) 1,000 MCG TAB PO SCH (08:31)
[2022-11-09] MEDS: Bupropion 150 MG XL TAB PO SCH (08:31)
[2022-11-09] MEDS: Aspirin 81 mg Enteric Coated Tablet PO SCH (08:31)
[2022-11-09] MEDS: Calcium Carbonate 500 MG TAB PO SCH ×3 (08:31→20:33)
[2022-11-09] MEDS: Lantiseptic Ointment 130 GM JAR TOP SCH ×2 (08:32→20:33)
[2022-11-09] MEDS: Rosuvastatin 10 MG TAB PO SCH (20:30)
[2022-11-09] MEDS: Multivitamin W/ Minerals 1 TAB PO SCH (20:31)
[2022-11-09] MEDS: Meloxicam 7.5 MG TAB PO PRN (20:31)
[2022-11-09] MEDS: Zinc Sulfate 220 MG CAP PO SCH (20:31)
[2022-11-09] MEDS: Tamsulosin HCl 0.4 MG CAP PO SCH (20:31)
[2022-11-09] MEDS: Ascorbic Acid 500 mg Chewable Tablet PO SCH (20:32)
[2022-11-09] MEDS: Ezetimibe 10 MG TAB PO SCH (20:33)
[2022-11-09] MEDS: Temazepam 15 MG CAP PO SCH (23:16)
[2022-11-10] MEDS: WIXELA INH SCH ×2 (08:30→20:37)
[2022-11-10] MEDS: Omega-3 Acid Ethyl Esters [Lovaza] 1 GM Capsule PO SCH ×2 (08:30→20:36)
[2022-11-10] MEDS: Furosemide 40 MG TAB PO SCH (08:32)
[2022-11-10] MEDS: Senokot S 8.6-50 MG TAB PO SCH ×2 (08:32→20:32)
[2022-11-10] MEDS: Calcium Carbonate 500 MG TAB PO SCH ×3 (08:32→20:33)
[2022-11-10] MEDS: Bupropion 150 MG XL TAB PO SCH (08:32)
[2022-11-10] MEDS: Aspirin 81 mg Enteric Coated Tablet PO SCH (08:32)
[2022-11-10] MEDS: Cyanocobalamin (Vitamin B-12) 1,000 MCG TAB PO SCH (08:32)
[2022-11-10] MEDS: Lantiseptic Ointment 130 GM JAR TOP SCH ×2 (08:38→20:34)
[2022-11-10] MEDS: Bisacodyl 10 MG SUPP PR PRN (17:23)
[2022-11-10 19:11] LABS: Bilirubin Negative (Negative); Blood, Urine Negative (Negative); Clarity Clear (Clear); Glucose, Urine (Dipstick) Negative (Negative); Ketone, Urine Negative (Negative); Leukocyte Trace (Negative); Nitrite Negative (Negative); Protein, Urine (Dipstick) Negative (Neg-Trace); Specific Gravity, Urine 1.015 (1.005-1.030); Urobilinogen 0.2 mg/dL (Less than 2); pH, Urine 5.5 (5.0-9.0)
[2022-11-10 19:17] LABS: Bacteria/HPF Rare-Few HPF (None Seen); RBC/HPF None Seen HPF (0-3); Squamous Epithelial 0-3 HPF (0-3); WBC/HPF 0-3 HPF (0-3)
[2022-11-10] MEDS: Zinc Sulfate 220 MG CAP PO SCH (20:32)
[2022-11-10] MEDS: Rosuvastatin 10 MG TAB PO SCH (20:32)
[2022-11-10] MEDS: Ascorbic Acid 500 mg Chewable Tablet PO SCH (20:32)
[2022-11-10] MEDS: Tamsulosin HCl 0.4 MG CAP PO SCH (20:33)
[2022-11-10] MEDS: Multivitamin W/ Minerals 1 TAB PO SCH (20:33)
[2022-11-10] MEDS: Ezetimibe 10 MG TAB PO SCH (20:33)
[2022-11-10] MEDS: Temazepam 15 MG CAP PO SCH (23:15)
[2022-11-11] MEDS: Furosemide 40 MG TAB PO SCH ×2 (05:41→15:21)
[2022-11-11] MEDS: Aspirin 81 mg Enteric Coated Tablet PO SCH (09:05)
[2022-11-11] MEDS: Calcium Carbonate 500 MG TAB PO SCH ×3 (09:05→20:55)
[2022-11-11] MEDS: Bupropion 150 MG XL TAB PO SCH (09:05)
[2022-11-11] MEDS: Potassium Chloride 20 MEQ TAB PO SCH (09:05)
[2022-11-11] MEDS: Senokot S 8.6-50 MG TAB PO SCH ×2 (09:05→20:55)
[2022-11-11] MEDS: Cyanocobalamin (Vitamin B-12) 1,000 MCG TAB PO SCH (09:05)
[2022-11-11] MEDS: Acetaminophen 500 MG TAB PO PRN ×2 (09:05→20:55)
[2022-11-11] MEDS: Lantiseptic Ointment 130 GM JAR TOP SCH ×2 (09:06→20:56)
[2022-11-11] MEDS: WIXELA INH SCH ×2 (09:07→20:57)
[2022-11-11] MEDS: Omega-3 Acid Ethyl Esters [Lovaza] 1 GM Capsule PO SCH ×2 (09:07→20:56)
[2022-11-11] MEDS: Tamsulosin HCl 0.4 MG CAP PO SCH (20:55)
[2022-11-11] MEDS: Multivitamin W/ Minerals 1 TAB PO SCH (20:55)
[2022-11-11] MEDS: Ascorbic Acid 500 mg Chewable Tablet PO SCH (20:55)
[2022-11-11] MEDS: Zinc Sulfate 220 MG CAP PO SCH (20:55)
[2022-11-11] MEDS: Rosuvastatin 10 MG TAB PO SCH (20:55)
[2022-11-11] MEDS: Ezetimibe 10 MG TAB PO SCH (20:55)
[2022-11-11] MEDS: Temazepam 15 MG CAP PO SCH (22:12)
[2022-11-12] MEDS: Furosemide 40 MG TAB PO SCH ×2 (05:34→14:55)
[2022-11-12 07:39] LABS: Anion Gap 14 mmol/L (10-20); BUN (Urea Nitrogen) 18 mg/dL (8.4-25.7); Calc. Creatinine Clearance 144 mL/min (70-130); Calcium 9.5 mg/dL (7.8-10.44); Carbon Dioxide 28 mmol/L (23-31); Chloride 102 mmol/L (98-107); Estimated GFR 89; Glucose 101 mg/dL (83-110); Potassium 3.8 mmol/L (3.5-5.1); Sodium 140 mmol/L (136-145)
[2022-11-12] MEDS: Omega-3 Acid Ethyl Esters [Lovaza] 1 GM Capsule PO SCH ×2 (09:42→20:59)
[2022-11-12] MEDS: WIXELA INH SCH ×2 (09:42→20:59)
[2022-11-12] MEDS: Aspirin 81 mg Enteric Coated Tablet PO SCH (09:43)
[2022-11-12] MEDS: Bupropion 150 MG XL TAB PO SCH (09:43)
[2022-11-12] MEDS: Senokot S 8.6-50 MG TAB PO SCH ×2 (09:43→20:56)
[2022-11-12] MEDS: Calcium Carbonate 500 MG TAB PO SCH ×3 (09:43→20:57)
[2022-11-12] MEDS: Potassium Chloride 20 MEQ TAB PO SCH (09:43)
[2022-11-12] MEDS: Cyanocobalamin (Vitamin B-12) 1,000 MCG TAB PO SCH (09:43)
[2022-11-12] MEDS: Lantiseptic Ointment 130 GM JAR TOP SCH ×2 (09:44→22:25)
[2022-11-12 14:34] LABS: Bilirubin Negative (Negative); Blood, Urine Negative (Negative); Clarity Clear (Clear); Glucose, Urine (Dipstick) Negative (Negative); Ketone, Urine Trace mg/dL (Negative); Leukocyte Trace (Negative); Nitrite Negative (Negative); Protein, Urine (Dipstick) Negative (Neg-Trace); Urobilinogen 0.2 mg/dL (Less than 2)
[2022-11-12 14:46] LABS: Bacteria/HPF Rare-Few HPF (None Seen); RBC/HPF None Seen HPF (0-3); Squamous Epithelial 0-3 HPF (0-3); WBC/HPF 0-3 HPF (0-3)
[2022-11-12] MEDS: Ascorbic Acid 500 mg Chewable Tablet PO SCH (20:56)
[2022-11-12] MEDS: Rosuvastatin 10 MG TAB PO SCH (20:57)
[2022-11-12] MEDS: Multivitamin W/ Minerals 1 TAB PO SCH (20:57)
[2022-11-12] MEDS: Tamsulosin HCl 0.4 MG CAP PO SCH (20:57)
[2022-11-12] MEDS: Zinc Sulfate 220 MG CAP PO SCH (20:57)
[2022-11-12] MEDS: Ezetimibe 10 MG TAB PO SCH (20:57)
[2022-11-12] MEDS: Temazepam 15 MG CAP PO SCH (22:24)
[2022-11-13] MEDS: Furosemide 40 MG TAB PO SCH ×2 (05:55→14:16)
[2022-11-13] MEDS: Potassium Chloride 20 MEQ TAB PO SCH (08:10)
[2022-11-13] MEDS: Cyanocobalamin (Vitamin B-12) 1,000 MCG TAB PO SCH (08:10)
[2022-11-13] MEDS: Calcium Carbonate 500 MG TAB PO SCH ×3 (08:10→20:46)
[2022-11-13] MEDS: Senokot S 8.6-50 MG TAB PO SCH ×2 (08:11→20:44)
[2022-11-13] MEDS: Omega-3 Acid Ethyl Esters [Lovaza] 1 GM Capsule PO SCH ×2 (08:11→20:47)
[2022-11-13] MEDS: Bupropion 150 MG XL TAB PO SCH (08:11)
[2022-11-13] MEDS: WIXELA INH SCH ×2 (08:11→20:51)
[2022-11-13] MEDS: Aspirin 81 mg Enteric Coated Tablet PO SCH (08:11)
[2022-11-13] MEDS: Lantiseptic Ointment 130 GM JAR TOP SCH ×2 (08:16→20:46)
[2022-11-13] MEDS: Ascorbic Acid 500 mg Chewable Tablet PO SCH (20:45)
[2022-11-13] MEDS: Tamsulosin HCl 0.4 MG CAP PO SCH (20:45)
[2022-11-13] MEDS: Rosuvastatin 10 MG TAB PO SCH (20:45)
[2022-11-13] MEDS: Zinc Sulfate 220 MG CAP PO SCH (20:45)
[2022-11-13] MEDS: Ezetimibe 10 MG TAB PO SCH (20:45)
[2022-11-13] MEDS: Multivitamin W/ Minerals 1 TAB PO SCH (20:46)
[2022-11-13] MEDS: Temazepam 15 MG CAP PO SCH (22:20)
[2022-11-14] MEDS: Furosemide 40 MG TAB PO SCH ×2 (05:57→14:02)
[2022-11-14] MEDS: Bupropion 150 MG XL TAB PO SCH (08:41)
[2022-11-14] MEDS: Senokot S 8.6-50 MG TAB PO SCH ×2 (08:41→21:34)
[2022-11-14] MEDS: Cyanocobalamin (Vitamin B-12) 1,000 MCG TAB PO SCH (08:41)
[2022-11-14] MEDS: Lantiseptic Ointment 130 GM JAR TOP SCH ×2 (08:42→21:35)
[2022-11-14] MEDS: Potassium Chloride 20 MEQ TAB PO SCH (08:42)
[2022-11-14] MEDS: Aspirin 81 mg Enteric Coated Tablet PO SCH (08:42)
[2022-11-14] MEDS: Calcium Carbonate 500 MG TAB PO SCH ×3 (08:42→21:34)
[2022-11-14] MEDS: Omega-3 Acid Ethyl Esters [Lovaza] 1 GM Capsule PO SCH ×2 (08:45→21:33)
[2022-11-14] MEDS: WIXELA INH SCH ×2 (08:45→21:33)
[2022-11-14] MEDS: Acetaminophen 500 MG TAB PO PRN (08:49)
[2022-11-14] MEDS: Tamsulosin HCl 0.4 MG CAP PO SCH (21:34)
[2022-11-14] MEDS: Ezetimibe 10 MG TAB PO SCH (21:34)
[2022-11-14] MEDS: Rosuvastatin 10 MG TAB PO SCH (21:34)
[2022-11-14] MEDS: Multivitamin W/ Minerals 1 TAB PO SCH (21:34)
[2022-11-14] MEDS: Ascorbic Acid 500 mg Chewable Tablet PO SCH (21:35)
[2022-11-14] MEDS: Zinc Sulfate 220 MG CAP PO SCH (21:35)
[2022-11-14] MEDS: Meloxicam 7.5 MG TAB PO PRN (22:52)
[2022-11-14] MEDS: Temazepam 15 MG CAP PO SCH (22:53)
[2022-11-15] MEDS: Furosemide 40 MG TAB PO SCH ×2 (06:10→14:50)
[2022-11-15 06:24] VITALS: BMI 41.8
[2022-11-15] MEDS: Bupropion 150 MG XL TAB PO SCH (08:36)
[2022-11-15] MEDS: Senokot S 8.6-50 MG TAB PO SCH ×2 (08:36→20:41)
[2022-11-15] MEDS: Aspirin 81 mg Enteric Coated Tablet PO SCH (08:36)
[2022-11-15] MEDS: Potassium Chloride 20 MEQ TAB PO SCH (08:36)
[2022-11-15] MEDS: Cyanocobalamin (Vitamin B-12) 1,000 MCG TAB PO SCH (08:37)
[2022-11-15] MEDS: Calcium Carbonate 500 MG TAB PO SCH ×3 (08:37→20:43)
[2022-11-15] MEDS: Lantiseptic Ointment 130 GM JAR TOP SCH ×2 (08:38→20:42)
[2022-11-15] MEDS: WIXELA INH SCH ×2 (08:39→20:45)
[2022-11-15] MEDS: Omega-3 Acid Ethyl Esters [Lovaza] 1 GM Capsule PO SCH ×2 (08:40→20:45)
[2022-11-15] MEDS: Rosuvastatin 10 MG TAB PO SCH (20:41)
[2022-11-15] MEDS: Tamsulosin HCl 0.4 MG CAP PO SCH (20:41)
[2022-11-15] MEDS: Zinc Sulfate 220 MG CAP PO SCH (20:41)
[2022-11-15] MEDS: Ezetimibe 10 MG TAB PO SCH (20:41)
[2022-11-15] MEDS: Ascorbic Acid 500 mg Chewable Tablet PO SCH (20:42)
[2022-11-15] MEDS: Multivitamin W/ Minerals 1 TAB PO SCH (20:42)
[2022-11-15] MEDS: Temazepam 15 MG CAP PO SCH (22:33)
[2022-11-16] MEDS: Furosemide 40 MG TAB PO SCH ×2 (05:50→14:35)
[2022-11-16] MEDS: Calcium Carbonate 500 MG TAB PO SCH ×3 (09:02→22:01)
[2022-11-16] MEDS: Aspirin 81 mg Enteric Coated Tablet PO SCH (09:02)
[2022-11-16] MEDS: Potassium Chloride 20 MEQ TAB PO SCH (09:02)
[2022-11-16] MEDS: Bupropion 150 MG XL TAB PO SCH (09:02)
[2022-11-16] MEDS: Cyanocobalamin (Vitamin B-12) 1,000 MCG TAB PO SCH (09:02)
[2022-11-16] MEDS: Omega-3 Acid Ethyl Esters [Lovaza] 1 GM Capsule PO SCH ×2 (09:03→22:02)
[2022-11-16] MEDS: WIXELA INH SCH ×2 (09:04→22:02)
[2022-11-16] MEDS: Lantiseptic Ointment 130 GM JAR TOP SCH ×2 (09:07→22:02)
[2022-11-16] MEDS: Senokot S 8.6-50 MG TAB PO SCH ×2 (09:08→21:58)
[2022-11-16] MEDS: Ezetimibe 10 MG TAB PO SCH (21:56)
[2022-11-16] MEDS: Rosuvastatin 10 MG TAB PO SCH (21:56)
[2022-11-16] MEDS: Zinc Sulfate 220 MG CAP PO SCH (21:57)
[2022-11-16] MEDS: Meloxicam 7.5 MG TAB PO PRN (21:57)
[2022-11-16] MEDS: Multivitamin W/ Minerals 1 TAB PO SCH (21:57)
[2022-11-16] MEDS: Ascorbic Acid 500 mg Chewable Tablet PO SCH (21:57)
[2022-11-16] MEDS: Tamsulosin HCl 0.4 MG CAP PO SCH (21:57)
[2022-11-16] MEDS: Temazepam 15 MG CAP PO SCH (22:46)
[2022-11-17] MEDS: Furosemide 40 MG TAB PO SCH ×2 (05:44→13:34)
[2022-11-17] MEDS: Potassium Chloride 20 MEQ TAB PO SCH (07:56)
[2022-11-17] MEDS: Lantiseptic Ointment 130 GM JAR TOP SCH ×2 (07:59→21:52)
[2022-11-17] MEDS: WIXELA INH SCH ×2 (07:59→21:49)
[2022-11-17] MEDS: Omega-3 Acid Ethyl Esters [Lovaza] 1 GM Capsule PO SCH ×2 (07:59→21:50)
[2022-11-17] MEDS: Calcium Carbonate 500 MG TAB PO SCH ×3 (08:00→21:51)
[2022-11-17] MEDS: Senokot S 8.6-50 MG TAB PO SCH ×2 (08:00→21:51)
[2022-11-17] MEDS: Bupropion 150 MG XL TAB PO SCH (08:00)
[2022-11-17] MEDS: Cyanocobalamin (Vitamin B-12) 1,000 MCG TAB PO SCH (08:00)
[2022-11-17] MEDS: Aspirin 81 mg Enteric Coated Tablet PO SCH (08:00)
[2022-11-17] MEDS: Bisacodyl 10 MG SUPP PR PRN (13:33)
[2022-11-17 20:08] VITALS: TEMP 97.4
[2022-11-17] MEDS: Rosuvastatin 10 MG TAB PO SCH (21:51)
[2022-11-17] MEDS: Multivitamin W/ Minerals 1 TAB PO SCH (21:51)
[2022-11-17] MEDS: Ezetimibe 10 MG TAB PO SCH (21:51)
[2022-11-17] MEDS: Zinc Sulfate 220 MG CAP PO SCH (21:51)
[2022-11-17] MEDS: Tamsulosin HCl 0.4 MG CAP PO SCH (21:51)
[2022-11-17] MEDS: Ascorbic Acid 500 mg Chewable Tablet PO SCH (21:51)
[2022-11-17] MEDS: Temazepam 15 MG CAP PO SCH (22:28)
[2022-11-18] MEDS: Furosemide 40 MG TAB PO SCH ×2 (05:40→15:45)
[2022-11-18 08:47] VITALS: BP 106/71
[2022-11-18] MEDS: Omega-3 Acid Ethyl Esters [Lovaza] 1 GM Capsule PO SCH (08:48)
[2022-11-18] MEDS: Potassium Chloride 20 MEQ TAB PO SCH (08:49)
[2022-11-18] MEDS: WIXELA INH SCH (08:49)
[2022-11-18] MEDS: Bupropion 150 MG XL TAB PO SCH (08:50)
[2022-11-18] MEDS: Cyanocobalamin (Vitamin B-12) 1,000 MCG TAB PO SCH (08:50)
[2022-11-18] MEDS: Aspirin 81 mg Enteric Coated Tablet PO SCH (08:50)
[2022-11-18] MEDS: Lantiseptic Ointment 130 GM JAR TOP SCH (08:50)
[2022-11-18] MEDS: Senokot S 8.6-50 MG TAB PO SCH (08:50)
[2022-11-18] MEDS: Calcium Carbonate 500 MG TAB PO SCH ×2 (08:50→15:45)
== END 2022-11-18 17:30 | disposition home or self-care (01) | DRG 92 ==
LOC: MADMS 12:09
PROVIDERS: ADMIT Family Medicine; ATTEND Family Medicine
PROC: 5A09357 Assistance with Respiratory Ventilation, Less than 24 Consecutive Hours, Continuous Positive Airway Pressure (ICD-10-PCS; 2022-10-30)
PROC: 0T9B70Z Drainage of Bladder with Drainage Device, Via Natural or Artificial Opening (ICD-10-PCS; principal; 2022-11-12)
DX: R26.81 Unsteadiness on feet (principal); Z68.41 Body mass index [BMI] 40.0-44.9, adult; R53.1 Weakness; J44.9 Chronic obstructive pulmonary disease, unspecified; I10 Essential (primary) hypertension; E78.5 Hyperlipidemia, unspecified; I73.9 Peripheral vascular disease, unspecified; E66.01 Morbid (severe) obesity due to excess calories; Z96.653 Presence of artificial knee joint, bilateral; K21.9 Gastro-esophageal reflux disease without esophagitis; I89.0 Lymphedema, not elsewhere classified; M19.90 Unspecified osteoarthritis, unspecified site; Z66 Do not resuscitate; K59.00 Constipation, unspecified; N40.0 Benign prostatic hyperplasia without lower urinary tract symptoms; Z79.899 Other long term (current) drug therapy; Z79.82 Long term (current) use of aspirin; Z98.890 Other specified postprocedural states; Z87.891 Personal history of nicotine dependence; Z20.822 Contact with and (suspected) exposure to COVID-19
CPT/HCPCS: 36415; 74018; 80048; 80053; 81001; 81003; 81015; 85025; 87811; U0002

== ENCOUNTER 2023-10-26 11:06 | Emergency (ER) | payer MEDICARE, BC ==
[2023-10-26] MEDS ORDERED: Ipratropium/Albuterol 3 ML NEB ONE (11:53)
[2023-10-26] MEDS ORDERED: Ketorolac Tromethamine 30 MG (1 mL) VIAL ONE (11:53)
[2023-10-26 12:33] LABS: Anion Gap 18 mmol/L (10-20); BUN (Urea Nitrogen) 18 mg/dL (8.4-25.7); Band 6 % (5-11); Calc. Creatinine Clearance 0 mL/min (70-130); Calcium 8.6 mg/dL (7.8-10.44); Carbon Dioxide 20 mmol/L (23-31); Chloride 105 mmol/L (98-107); Eosinophils 2 % (0-10); Estimated GFR 88; Glucose 88 mg/dL (83-110); Hematocrit 51.4 % (42.0-52.0); Hemoglobin 16.3 g/dL (14.0-18.0); Lymphocytes 4 % (21-51); MDiff Complete? YES; Manual Diff?? YES; Mean Corpuscular HGB CONC 31.6 g/dL (32.0-36.0); Mean Corpuscular Hemoglobin 30.6 pg (27.0-31.0); Mean Corpuscular Volume 96.9 fl (78.0-98.0); Mean Platelet Volume 6.5 fL (7.4-10.4); Monocytes 3 % (0-10); Neutrophil 73 % (42-75); Platelet Count 220 10x3/uL (130-400); Potassium 4.7 mmol/L (3.5-5.1); Red Blood Cell (RBC) Count 5.31 mill/uL (4.70-6.10); Sodium 138 mmol/L (136-145); White Blood Cell (WBC) Count 8.5 10x3/uL (4.8-10.8)
[2023-10-26 12:34] LABS: Platelet Adequacy Comment Appears Adequate; RBC Morph Comment Within Normal Limits; Reactive Lymphocytes 12 % (0-10)
[2023-10-26] MEDS ORDERED: predniSONE 20 MG TAB ONE (12:49)
== END 2023-10-26 13:30 | disposition home or self-care (01) ==
LOC: MADERS 11:06
DX: J20.9 Acute bronchitis, unspecified (principal); I10 Essential (primary) hypertension; E78.00 Pure hypercholesterolemia, unspecified; Z79.899 Other long term (current) drug therapy; J44.9 Chronic obstructive pulmonary disease, unspecified; Z79.82 Long term (current) use of aspirin
CPT/HCPCS: 51702; 71045; 80048; 83880; 84484; 85025; 87804; 93005; 96374; J1885; J7512; J7620

== ENCOUNTER 2023-12-05 01:10 | Emergency (ER) | payer MEDICARE, BC ==
[2023-12-05] MEDS ORDERED: Acetaminophen 500 MG TAB ONE (01:52)
[2023-12-05 01:58] LABS: Band 1 % (5-11); Hematocrit 51.7 % (42.0-52.0); Hemoglobin 16.4 g/dL (14.0-18.0); Lymphocytes 20 % (21-51); MDiff Complete? YES; Mean Corpuscular HGB CONC 31.8 g/dL (32.0-36.0); Mean Corpuscular Hemoglobin 30.5 pg (27.0-31.0); Mean Platelet Volume 6.4 fL (7.4-10.4); Monocytes 6 % (0-10); Neutrophil 73 % (42-75); Platelet Count 226 10x3/uL (130-400); RBC Distribution Width 13.5 % (11.5-14.5); Red Blood Cell (RBC) Count 5.38 mill/uL (4.70-6.10); White Blood Cell (WBC) Count 8.4 10x3/uL (4.8-10.8)
[2023-12-05 02:09] LABS: ALT (SGPT) 26 U/L (8-55); AST (SGOT) 27 U/L (5-34); Albumin 3.8 g/dL (3.4-4.8); Alkaline Phosphatase 88 U/L (40-110); Anion Gap 15 mmol/L (10-20); BUN (Urea Nitrogen) 18 mg/dL (8.4-25.7); Bilirubin, Total 0.3 mg/dL (0.2-1.2); Calc. Creatinine Clearance 0 mL/min (70-130); Calcium 9.1 mg/dL (7.8-10.44); Carbon Dioxide 25 mmol/L (23-31); Chloride 102 mmol/L (98-107); Estimated GFR 88; Globulin 3.1 g/dL (2.4-3.5); Glucose 110 mg/dL (83-110); Potassium 4.2 mmol/L (3.5-5.1); Protein, Total 6.9 g/dL (5.8-8.1); Sodium 138 mmol/L (136-145); Troponin I 0.064 ng/mL (< 0.028)
[2023-12-05] MEDS ORDERED: Bacitracin 1 PK ONE (02:30)
[2023-12-05] MEDS ORDERED: traMADol HCl 50 MG TAB ONE (03:10)
== END 2023-12-05 03:32 | disposition home or self-care (01) ==
LOC: MADERS 01:10
DX: R55 Syncope and collapse (principal); S51.811A Laceration without foreign body of right forearm, initial encounter; S39.012A Strain of muscle, fascia and tendon of lower back, initial encounter; S50.811A Abrasion of right forearm, initial encounter; I10 Essential (primary) hypertension; E78.00 Pure hypercholesterolemia, unspecified; J44.9 Chronic obstructive pulmonary disease, unspecified; E66.01 Morbid (severe) obesity due to excess calories; W01.0XXA Fall on same level from slipping, tripping and stumbling without subsequent striking against object, initial encounter; Z79.82 Long term (current) use of aspirin; Z79.899 Other long term (current) drug therapy
CPT/HCPCS: 36415; 70450; 72125; 72128; 72131; 80053; 84484; 85025; 93005